=== PATIENT | male | born 1950 | race Caucasian/White ===

== ENCOUNTER 2019-08-18 06:08 | Day surgery (SDC) | payer MEDICARE, MEDICAID, SELFPAY ==
[2019-08-18 06:31] VITALS: BMI 28.0
--- NOTE | 2019-08-18 06:44 | ANES.PREANES ---
Pre-Anesthetic Assessment Pre-Anesthetic Assessment: Height/Weight: Height 1.75 m Weight 86.183 kg Proposed Procedure: Operation Date: 08/18/19 07:05 Proposed Procedures p EGD 28683 K21.9(Not Applicable) - Cody Garrett MD Social: Social History: Tobacco and No alcohol Packs per day: 1 Exam: Pre-Anes Outpt Exam: alert, oriented x 3, clear to auscultation bilaterally and regular rate & rhythm Airway: Submandibular: WNL Cervical ROM: WNL MP: 1 Dentition: False and Partials History/ROS: Other Pulmonary: Pulmonary: Asthma, COPD and SOB CV/HEM: CV/HEM: HTN : Comments: enlarged prostate GI: GI: GERD (controlled) Metabolic: Metabolic: DM (no meds taken) and Hyperlipidemia Musc/skel: Musc/skel: Lower Back Pain, OA/DJD and Weakness (hip and extremeties at times) Neuropsych: Neuropsych: Anxiety and Depression Anesthetic Plan: ASA status: III Anesthesia: MAC Risk of > 500 ml blood loss (7ml/kg in children): No PFSH Anesthesia PFSH: Social History (Updated 08/15/19 @ 13:16 by Thelma Arevalo RN) Smoking and tobacco status: never smoked Alcohol intake: never Substance/Drug Use: never Data Anesthesia Cardiac Studies: No Data to Display
[2019-08-18 06:48] VITALS: BP 145/76; PULSE 63; RESP 18; TEMP 36.3; O2SAT 93
[2019-08-18] MEDS: sodium chloride 0.9% 1,000 ML 30 ML (06:57)
[2019-08-18] MEDS: ondansetron 2 mg/ML SDV 2 mL 4 MG IVP (06:57)
--- NOTE | 2019-08-18 06:57 | PM.HPUD ---
H&P update H&P Update: DATE OF SURGERY/PROCEDURE: 08/18/19 DATE H&P PERFORMED: 06/17/19 PLANNED PROCEDURE: Operation Date: 08/18/19 07:05 Proposed Procedures p EGD 62312 K21.9(Not Applicable) - Cody Garrett MD Full H&P HPI: PLANNED PROCEDURE: EGD HPI: This is a 69-year-old gentleman who had previously been scheduled for an EGD but had to be canceled due to chest pain. He has been cleared by cardiology and now presents for EGD. No new symptoms. Perinent History: Social History: Social History Smoking and tobacco status: never smoked Alcohol intake: never Substance/Drug Use: never Pertinent Exam Findings: PHYSICAL EXAM: alert and oriented x 3 A&P Assessment and plan (1) GERD (gastroesophageal reflux disease): Plan for EGD under MAC today Procedure, risks, benefits and alternatives have been discussed with the patient who wishes to proceed with surgery. Status: Acute Code(s): K21.9 - Gastro-esophageal reflux disease without esophagitis
[2019-08-18 07:19] VITALS: BP 123/79; PULSE 63; RESP 16; TEMP 36.1; O2SAT 94
--- NOTE | 2019-08-18 07:23 | ANE.PACU ---
 Inpatient post-anesthesia follow up: Airway intact: Yes Vital signs: Temperature 97 F Pulse Rate [Right Radial] 63 Respiratory Rate 16 Blood Pressure [Le ft Arm] 123/79 Pulse Oximetry 94 Oxygen Delivery Me thod Nasal Cannula Oxygen Flow Rate 2 Fraction of Inspir ed Oxygen Hydration adequate: Yes Nausea and vomiting: No Pain level: 1 Mental status: Baseline
[2019-08-18 07:27] VITALS: BP 135/72; PULSE 61; RESP 16; O2SAT 95
[2019-08-18 07:37] VITALS: BP 144/61; PULSE 59; RESP 16; O2SAT 91
== END 2019-08-18 08:15 | disposition home or self-care (01) ==
PROVIDERS: Family Provider Internal Medicine; PCP Internal Medicine; Visit Provider Surgery
PROC: 0DJ08ZZ Inspection of Upper Intestinal Tract, Via Natural or Artificial Opening Endoscopic (ICD-10-PCS; CPT 43235; principal; 2019-08-18 07:00)
DX: K21.9 Gastro-esophageal reflux disease without esophagitis (principal); K29.80 Duodenitis without bleeding; I10 Essential (primary) hypertension; E11.9 Type 2 diabetes mellitus without complications; E78.5 Hyperlipidemia, unspecified; M19.90 Unspecified osteoarthritis, unspecified site
CPT/HCPCS: 43239; 88305; 96365; J2001; J2405; J2704; J7030

== ENCOUNTER → 2019-08-20 14:10 | Outpatient (BNVA) | payer MEDICARE, MEDICAID, SELFPAY | PROVIDERS: Family Provider Internal Medicine; PCP Internal Medicine; Visit Provider Anesthesiology | DX: M54.9 Dorsalgia, unspecified (principal); F17.210 Nicotine dependence, cigarettes, uncomplicated; Z79.891 Long term (current) use of opiate analgesic | CPT/HCPCS: 99214 ==

== ENCOUNTER → 2019-10-09 13:53 | Outpatient (BNVA) | payer MEDICARE, MEDICAID, SELFPAY | PROVIDERS: Family Provider Internal Medicine; PCP Internal Medicine; Visit Provider Anesthesiology | DX: M54.9 Dorsalgia, unspecified (principal); M19.011 Primary osteoarthritis, right shoulder; Z79.891 Long term (current) use of opiate analgesic | CPT/HCPCS: 99214 ==

== ENCOUNTER 2020-01-02 11:40 | Outpatient (CLI) | payer MEDICARE, MEDICAID, SELFPAY ==
[2020-01-02 12:27] LABS: Basophils % 0.1 %; Eosinophils # 0.2 10^3/uL (0.0-0.8); Eosinophils % 2.5 %; Hematocrit 47.8 % (42.0-52.0); Hemoglobin 15.7 g/dL (11.7-16.6); Lymphocytes # 2.1 10^3/uL (0.8-4.8); Lymphocytes % 22.2 %; Mean Corpuscular HGB Conc 32.8 g/dL (30.0-36.0); Mean Corpuscular Hemoglobin 27.5 pg (28.0-34.0); Mean Corpuscular Volume 83.9 fL (80-94); Mean Platelet Volume 8.9 fL (7.4-10.4); Monocytes # 0.5 10^3/uL (0.2-0.9); Monocytes % 5.1 %; Neutrophils # 6.6 10^3/uL (1.8-7.7); Neutrophils % 68.8 %; Nucleated Red Blood Cells % 0 %; Platelet Count 260 10^3/cmm (130-400); Red Cell Distribution Width 14.6 % (12.1-15.1); White Blood Count 9.6 10^3/uL (4.0-10.0)
[2020-01-02 12:45] LABS: Alanine Aminotransferase < 5 U/L (0-41); Albumin Level 4.5 g/dL (3.5-5.2); Alkaline Phosphatase 68 IU/L (40-130); Anion Gap 15.4 (5-19); Aspartate Amino Transferase 17 U/L (0-40); Blood Urea Nitrogen 14 mg/dL (8-23); Carbon Dioxide 25 mmol/L (22-29); Chloride 98 mmol/L (98-107); Globulin 2.8 g/dL (1.3-4.6); Glomerular Filtration Rate 83.4 mL/min (90-130); Glucose 131 mg/dL (65-115); Lactate Dehydrogenase 151 U/L (135-225); Osmolality Calculated 276 mOsm/kg (285-295); Potassium 4.4 mmol/L (3.5-5.1); Sodium 134 mmol/L (136-145); Total Bilirubin 0.2 mg/dL (0.15-1.2); Total Protein 7.3 g/dL (6.6-8.7)
== END 2020-01-02 11:41 | disposition home or self-care (01) ==
LOC: ONCMED 13:18
PROVIDERS: PCP Internal Medicine; Visit Provider Internal Medicine Hematology & Oncology
DX: M79.3 Panniculitis, unspecified (principal); R59.0 Localized enlarged lymph nodes
CPT/HCPCS: 80053; 83615; 85025

== ENCOUNTER 2020-01-05 15:05 | Outpatient (CLI) | payer MEDICARE, MEDICAID, SELFPAY ==
--- NOTE | 2020-01-05 16:53 | ONC FU_ITS ---
Dr. Wakefield follow up note Patient: Tasneem Barajas Unit #: [id number]: 1950 Dicatated By: Lin Wakefield M.D.Date of Visit:Jan 05, 2020 Onc Med Follow-up/Prog Note History of Present Illness: This is a 70 year-old man with mesenteric panniculitis. He had presented to emergency room with several months history of central abdominal pain, severe heartburn, cough and hemoptysis. A CT of the abdomen and pelvis on 06/09/2015 showed a large area of mesenteric stranding and edema just below pancreas with numerous lymph nodes in the mesentery and adjacent retroperitoneal area up to 1.2 cm. Lymphoproliferative disorder was considered radiographically. There was a thickening in the cecum. He had recent colonoscopy on 04/27/2015 without evidence of malignancy. The patient was first seen by Dr. Sheridan on 07/07/2015. He reported similar symptoms since at least December 2014. LDH and CA-19-9 were unrevealing. ESR 36, CRP 2.8. CT of the chest, abdomen, and pelvis on 07/21/2015 showed findings of GERD, and unchanged central mesenteric fat stranding with a retroperitoneal and mesenteric lymphadenopathy. Differential remained panniculitis versus low-grade indolent non-Hodgkin's lymphoma. Of note, he had prostatic focus on imaging, PSA 2. An upper endoscopy on 07/27/2015 revealed hiatal hernia with normal mucosa. PET/CT on 08/09/2015 showed nonspecific FDG negative mesenteric and retroperitoneal lymphadenopathy up to 1.9 cm, with misting of mesentery, that could represent reactive lymphadenopathy or low-grade lymphoproliferative disorder. There was no splenomegaly. There was normal uptake in the bone marrow. CT of the chest, abdomen, and pelvis on 07/21/2015 showed unchanged findings of mesenteric fat stranding and adenopathy. There was less conspicuous full-thickness of the cecum. Repeat CT of the abdomen and pelvis on 11/18/2015 showed persistent mesenteric panniculitis with increased and enlarging mesenteric lymph nodes but stable retroperitoneal lymph nodes. The patient was evaluated by Dr. Spangler, gastroenterology. Medical management of hiatal hernia was recommended. GERD was believed to cause pharyngeal irritation/ laryngeal irritation. Panniculitis treatment with 1 month's course of doxycycline 100 mg twice a day and Bactrim DS twice a day was considered. He had a followup visit with Dr. Sheridan on 11/22/2015. At that time his daughter indicated that the most concerning symptoms for his family were related to his progressive functional decline, memory changes, and constant tremors. He was known to have Parkinson's disease with significant tremors and difficulties ambulating. Neurology evaluation for Parkinson's disease had previously been requested but not completed. Family agreed at that point to see the neurologist in [place]. His other medical illnesses include hypertension, hyperlipidemia, COPD, GERD, degenerative arthritis, fibromyalgia, and depression. He also has a history of seizure disorder. He had smoked in the past, but had quit for 22 years. He then started smoking again in July 2015, and he is back up to smoking 1 pack of cigarettes daily. CT scan of the abdomen and pelvis performed 08/21/2016 showed mesenteric panniculitis (sclerosing mesenteritis). The lymph nodes had increased slightly in size and number since 06/09/2015 and 02/09/2016. CT scan of abdomen and pelvis done on 03/06/[address] scans of abdomen pelvis from 08/21/2016 and 02/09/2016 it shows persistent findings of mesenteric panniculitis. Associated lymphadenopathy with at least one lymph node larger (1.5 cm) than on 08/21/162016 Follow-up CT scan of abdomen done on 10/25/2018 when compared with one from 12/18/2016 showed no significant change in central mesenteric fat induration and lymphadenopathy etiology still unclear, indolent/low-grade lymphoma or idiopathic, follow-up CT scan of abdomen recommended in [address] scan of abdomen pelvis ordered by PMD for abdominal pain done on 03/28/2019 showed no acute findings, no change in mesenteric adenopathy since 2017. Enlarged prostate with the findings suggestive of bladder outlet obstruction. Came for follow-up, complaining of abdominal fullness, but no abdominal pain, no night sweats, no peripheral lymphadenopathy, no weight loss, no recurrent fever. Also complaining of acid reflux, under control with current medication. Medications: Albuterol Sulfate 1 ((2.5 mg/3ml) 0.083%) Nebulization solution Inhalation daily PRN, ALPRAZolam 0.5 - 1 Tablet (of 1 mg) Oral four times a day, Antivert 1 Tablet (of 25 mg) Oral t.i.d. PRN, Carbidopa-Levodopa ER 2 Tablet (of 25-100 mg) Tablet, controlled release Oral four times a day, CeleXA 1 (20 mg) Tablet Oral daily, Cyanocobalamin 1 dose(s) (of 1000 mcg/mL) Injection q 4 weeks, Cymbalta 1 Capsule (of 60 mg) Capsule Delayed Release Particles Oral b.i.d., Enalapril Maleate (10 mg) Oral daily, Flomax 1 Capsule (of 0.4 mg) Oral b.i.d., Furosemide 0.5 - 1 Tablet (of 20 mg) Oral daily PRN, Hydrocodone-Acetaminophen 2 Tablet (of 10-325 mg) Oral four times a day PRN, Lovastatin 1 Tablet (of 20 mg) Oral daily, NexIUM 1 Capsule (of 40 mg) Capsule Delayed Release Oral b.i.d., ProAir HFA Aerosol, solution Inhalation, Robitussin Cough/Cold CF Liquid Oral PRN, Tradjenta 1 Tablet (of 5 mg) Oral daily, Vasotec 1 Tablet (of 10 mg) Oral daily Allergies: Aleve, Ibuprofen, Januvia, milk, and TraZODone HCl. Review of Systems: Constitutional - Appetite is poor and weight is stable. Pat[place] states he feels feverish but does not run a temoperature. No chills, hot flashes, or night sweats. Energy level is fair, ENMT - Some sinus congestion/drainage. Some mouth sores. No sore throat or difficulty swallowing, Hematologic/Lymphatic - No abnormal bruising or bleeding, Respiratory - Patient has shortness of breath with exertion. Nonproductive cough. No pleuritic pain or hemoptysis, Cardiovascular - No angina pain. No palpitations, Gastrointestinal - Patient has nausea, without vomiting. Some heartburn or acid reflux. No diarrhea or constipation. No blood in the stool or black stools, Genitourinary (M) - No dysuria or hematuria. No urinary frequency. No urgency or incontinence, Musculoskeletal - Chronic joint or bone pain, Neurologic - No headache or dizziness. No numbness/paresthesias or other focal neurologic symptoms, Psychiatric - No anxiety or depression. No insomnia. Vital Signs: Vitals are not available for this patient. Performance Status: 0 - Fully active, able to carry on all predisease activities without restrictions. (ECOG) Physical Examination: ENMT - no mouth sores, no thrush, Respiratory - Lungs are clear, Cardiovascular - Regular rate and rhythm of heart, Abdomen - soft, bowel sounds present, no tenderness, Extremities - no visible edema, no peripheral lymphadenopathy. Lab/Imaging: Test performed on January 02, 2020 11:40 LDH (Total) 151 U/L Sodium 134 mmol/L Potassium 4.4 mmol/L Chloride 98 mmol/L CO2 25 mmol/L Anion Gap 15.4 BUN 14 mg/dL Creatinine 0.9 mg/dL Cr Clearance (Est) 92.45 mL/min eGFR 83.4 mL/min Glucose 131 mg/dL Calcium 10.0 mg/dL Protein, Total 7.3 g/dL Albumin 4.5 g/dL Globulin 2.8 g/dL Bilirubin, Total 0.2 mg/dL ALT (SGPT) < 5 U/L AST (SGOT) 17 U/L Alkaline Phosphatase 68 IU/L WBC 9.6 10 3/uL RBC 5.70 10 6/uL HGB 15.7 g/dL HCT 47.8 % MCV 83.9 fL MCH 27.5 pg MCHC 32.8 g/dL RDW 14.6 % Platelet Count 260 10 3/cmm MPV 8.9 fL Neutrophils 6.6 10 3/uL Lymphocytes 2.1 10 3/uL Monocytes 0.5 10 3/uL Eosinophils 0.2 10 3/uL Basophils 0.0 10 3/uL Neutrophil % 68.8 % Lymphocyte % 22.2 % Monocyte % 5.1 % Eosinophil % 2.5 % Basophils % 0.1 % Impression: 1. Patient with CT evidence of mesenteric panniculitis with associated retroperitoneal lymphadenopathy. Thus far there has been no clinical evidence of malignancy, but low-grade non-Hodgkin's lymphoma is in the differential. 2. He declined laparoscopy for tissue diagnosis. CT scan of abdomen pelvis done on 03/06/2017 showed persistent findings of mesenteric panniculitis. Associated lymphadenopathy with at least one lymph node larger than on 08/21/2016 CT scan of the abdominal pelvis done on 06/08/2017 shows findings of mesenteric panniculitis stable from 03/06/2017 , remote L5 compression fracture CT scan of abdomen chest abdomen pelvis done on 12/18/2017 showed when compared with one from 06/08/2017 mesenteric misting with changes of panniculitis and lymphadenopathy largest lymph node is 1.6 cm in diameter and a minimum progression since 06/08/[address] chest showed no significant adenopathy and stable CT scan chest since 02/09/2016 .Follow-up CT scan of abdomen pelvis done on 10/25/2018, when compared with CT scan of abdomen pelvis done on 12/18/2017 showed no significant change in central mesenteric fat induration and lymphadenopathy index lymph node is 13-14 mm. His other medical illnesses include: 3. Hypertension. 4. Hyperlipidemia. 5. COPD. 6. GERD. 7. Degenerative arthritis. 8. Fibromyalgia. 9. He has suspected Parkinson's disease. 10. He has history of seizure disorder. At this point he appears stable clinically with no obvious progression of lymphadenopathy and no other evidence of malignancy. Leukocytosis of questionable etiology could be due to smoking or stress or subclinical infection but underlying myeloproliferative disorder cannot be ruled out. now resolved repeat CBC done on 01/03/18 in his primary care's office today showed white blood count 9.9 hemoglobin 16.2 hct 48.5 platelets 214,000 Plan: Discussed with patient regarding his labs white blood count 9.6 hemoglobin 15.7 crit 47.8 platelets 260,000 CMP within normal limits LDH 161 Clinically, patient is doing well with no B signs symptoms or peripheral lymphadenopathy but only concern is abdominal fullness, patient has history of central lymphadenopathy due to mesenteric panniculitis, at this point we'll consider repeating CT scan of chest abdomen pelvis and if there is a progression then , may consider biopsy. Return to clinic after CT scan of chest abdomen pelvis to be scheduled within a month Signed By: Lin Wakefield M.D. <<Signature on File>>
== END 2020-01-05 15:06 | disposition home or self-care (01) ==
LOC: ONCMED 15:09
PROVIDERS: PCP Internal Medicine; Visit Provider Internal Medicine Hematology & Oncology
DX: M79.3 Panniculitis, unspecified (principal); R59.0 Localized enlarged lymph nodes; I10 Essential (primary) hypertension; E78.5 Hyperlipidemia, unspecified; J44.9 Chronic obstructive pulmonary disease, unspecified; K21.9 Gastro-esophageal reflux disease without esophagitis; M19.90 Unspecified osteoarthritis, unspecified site; M79.7 Fibromyalgia; G20 Parkinson's disease; G40.909 Epilepsy, unspecified, not intractable, without status epilepticus; Z79.899 Other long term (current) drug therapy
CPT/HCPCS: 99214

== ENCOUNTER → 2020-02-20 12:56 | Outpatient (BNVA) | payer MEDICARE, MEDICAID, SELFPAY | PROVIDERS: Family Provider Internal Medicine; PCP Internal Medicine; Visit Provider Anesthesiology | DX: M54.42 Lumbago with sciatica, left side (principal); M54.41 Lumbago with sciatica, right side; M19.011 Primary osteoarthritis, right shoulder; M54.9 Dorsalgia, unspecified; Z79.891 Long term (current) use of opiate analgesic | CPT/HCPCS: 99214 ==

== ENCOUNTER 2020-03-10 12:06 | Outpatient (CLI) | payer MEDICARE, MEDICAID, SELFPAY ==
--- NOTE | 2020-03-10 12:09 | CT_ITS ---
WS: [id number] CT ABDOMEN AND PELVIS WITH CONTRAST HISTORY: LYMPHADENOPATHY TECHNIQUE: Imaging performed of the abdomen and pelvis with IV contrast. Single phase imaging of the abdomen. Coronal and sagittal reformats are submitted. All CT scans at [facility] use at least one of these dose optimization techniques: automated exposure control; mA and/or kV adjustment per patient size (includes targeted exams where dose is matched to clinical indication); or iterativ e reconstruction. IV CONTRAST: Omnipaque 300; 95 mL IV. Oral contrast: Yes. DLP: 1100.93 mGy.cm COMPARISON: 03/28/2019 Lower thorax: Subsegmental linear atelectasis at the RIGHT lung base. Benign granuloma RIGHT lower lo be. Heart is normal size. Small hiatal hernia. Liver/biliary system: Normal size with no intrahepatic dilatation. Gallbladder: Normal. No gallstones or wall thickening. No pericholecystic fluid. Pancreas: Normal. Spleen: Normal. Adrenal glands: Normal. Right kidney: Normal. Left kidney: 12 mm cyst lower pole. No obstruction. Aorta: Mild atherosclerosis with no aneurysm. Lymphadenopathy: There are numerous indeterminate lymph nodes in the central mesentery with surroundi ng mesenteric misting. These lymph nodes have been present on prior examinations with the largest yao suring 11 mm in short axis diameter. No increase in size. No retroperitoneal adenopathy. Free fluid: None. GI tract: Normal appendix. There is mild diffuse fecal retention. Numerous diverticula in the sigmoid colon. Abdominal wall: Unremarkable abdominal wall. No hernia. Pelvis: Well-distended urinary bladder. Prostate gland is enlarged and heterogeneous encroaching into the posterior bladder. Prostate measures 5.6 x 5.8 cm. Bones: Mild anterior wedging of L5. CT/CT abdomen pelvis w con* [id number] IMPRESSION: 1. Mesenteric panniculitis with central mesenteric indeterminate lymph nodes. These lymph nodes nodes have been stable over multiple years. The largest measu res 11 mm in short axis diameter. 2. No splenomegaly. 3. Prostate enlargement.
[2020-03-10 13:01] LABS: Blood Urea Nitrogen 15 mg/dL (8-23)
[2020-03-10] MEDS: iohexol 300 mg/mL 100 mL Btl IV (13:54)
== END 2020-03-10 12:07 | disposition home or self-care (01) ==
LOC: CT 12:06
PROVIDERS: PCP Internal Medicine; Visit Provider Internal Medicine Hematology & Oncology
DX: R59.1 Generalized enlarged lymph nodes (principal); N40.0 Benign prostatic hyperplasia without lower urinary tract symptoms; K65.4 Sclerosing mesenteritis
CPT/HCPCS: 36415; 74177; 82565; 84520

== ENCOUNTER 2020-03-15 14:00 | Outpatient (CLI) | payer MEDICARE, MEDICAID, SELFPAY ==
--- NOTE | 2020-03-15 15:06 | ONC FU_ITS ---
Dr. Wakefield follow up note Patient: Tasneem Barajas Unit #: [id number]: 1950 Dicatated By: Lin Wakefield M.D.Date of Visit:Mar 15, 2020 Onc Med Follow-up/Prog Note History of Present Illness: This is a 70 year-old man with mesenteric panniculitis. He had presented to emergency room with several months history of central abdominal pain, severe heartburn, cough and hemoptysis. A CT of the abdomen and pelvis on 06/09/2015 showed a large area of mesenteric stranding and edema just below pancreas with numerous lymph nodes in the mesentery and adjacent retroperitoneal area up to 1.2 cm. Lymphoproliferative disorder was considered radiographically. There was a thickening in the cecum. He had recent colonoscopy on 04/27/2015 without evidence of malignancy. The patient was first seen by Dr. Sheridan on 07/07/2015. He reported similar symptoms since at least December 2014. LDH and CA-19-9 were unrevealing. ESR 36, CRP 2.8. CT of the chest, abdomen, and pelvis on 07/21/2015 showed findings of GERD, and unchanged central mesenteric fat stranding with a retroperitoneal and mesenteric lymphadenopathy. Differential remained panniculitis versus low-grade indolent non-Hodgkin's lymphoma. Of note, he had prostatic focus on imaging, PSA 2. An upper endoscopy on 07/27/2015 revealed hiatal hernia with normal mucosa. PET/CT on 08/09/2015 showed nonspecific FDG negative mesenteric and retroperitoneal lymphadenopathy up to 1.9 cm, with misting of mesentery, that could represent reactive lymphadenopathy or low-grade lymphoproliferative disorder. There was no splenomegaly. There was normal uptake in the bone marrow. CT of the chest, abdomen, and pelvis on 07/21/2015 showed unchanged findings of mesenteric fat stranding and adenopathy. There was less conspicuous full-thickness of the cecum. Repeat CT of the abdomen and pelvis on 11/18/2015 showed persistent mesenteric panniculitis with increased and enlarging mesenteric lymph nodes but stable retroperitoneal lymph nodes. The patient was evaluated by Dr. Spangler, gastroenterology. Medical management of hiatal hernia was recommended. GERD was believed to cause pharyngeal irritation/ laryngeal irritation. Panniculitis treatment with 1 month's course of doxycycline 100 mg twice a day and Bactrim DS twice a day was considered. He had a followup visit with Dr. Sheridan on 11/22/2015. At that time his daughter indicated that the most concerning symptoms for his family were related to his progressive functional decline, memory changes, and constant tremors. He was known to have Parkinson's disease with significant tremors and difficulties ambulating. Neurology evaluation for Parkinson's disease had previously been requested but not completed. Family agreed at that point to see the neurologist in [place]. His other medical illnesses include hypertension, hyperlipidemia, COPD, GERD, degenerative arthritis, fibromyalgia, and depression. He also has a history of seizure disorder. He had smoked in the past, but had quit for 22 years. He then started smoking again in July 2015, and he is back up to smoking 1 pack of cigarettes daily. CT scan of the abdomen and pelvis performed 08/21/2016 showed mesenteric panniculitis (sclerosing mesenteritis). The lymph nodes had increased slightly in size and number since 06/09/2015 and 02/09/2016. CT scan of abdomen and pelvis done on 03/06/[address] scans of abdomen pelvis from 08/21/2016 and 02/09/2016 it shows persistent findings of mesenteric panniculitis. Associated lymphadenopathy with at least one lymph node larger (1.5 cm) than on 08/21/162016 Follow-up CT scan of abdomen done on 10/25/2018 when compared with one from 12/18/2016 showed no significant change in central mesenteric fat induration and lymphadenopathy etiology still unclear, indolent/low-grade lymphoma or idiopathic, follow-up CT scan of abdomen recommended in [address] scan of abdomen pelvis ordered by PMD for abdominal pain done on 03/28/2019 showed no acute findings, no change in mesenteric adenopathy since 2017. Enlarged prostate with the findings suggestive of bladder outlet obstruction. Follow-up CT scan of abdomen pelvis done on March 10, 2020 showed mesenteric panniculitis with central mesenteric indeterminate lymph nodes. These lymph nodes have been stable over multiple years. Largest measured 11 mm in short axis diameter. No splenomegaly. Came for follow-up, patient denies any specific complaints, no night sweats, no weight loss, no peripheral lymphadenopathy, no recurrent fever. No abdominal fullness, no nausea or vomiting, no fever or chills. Medications: Albuterol Sulfate 1 ((2.5 mg/3ml) 0.083%) Nebulization solution Inhalation daily PRN, ALPRAZolam 0.5 - 1 Tablet (of 1 mg) Oral four times a day, Antivert 1 Tablet (of 25 mg) Oral t.i.d. PRN, Carbidopa-Levodopa ER 2 Tablet (of 25-100 mg) Tablet, controlled release Oral four times a day, CeleXA 1 (20 mg) Tablet Oral daily, Cymbalta 1 Capsule (of 60 mg) Capsule Delayed Release Particles Oral b.i.d., Enalapril Maleate (10 mg) Oral daily, Flomax 1 Capsule (of 0.4 mg) Oral b.i.d., Furosemide 0.5 - 1 Tablet (of 20 mg) Oral daily PRN, Hydrocodone-Acetaminophen 2 Tablet (of 10-325 mg) Oral four times a day PRN, Lovastatin 1 Tablet (of 20 mg) Oral daily, ProAir HFA Aerosol, solution Inhalation, Robitussin Cough/Cold CF Liquid Oral PRN, Tradjenta 1 Tablet (of 5 mg) Oral daily, Vasotec 1 Tablet (of 10 mg) Oral daily Allergies: Aleve, Ibuprofen, Januvia, milk, and TraZODone HCl. Review of Systems: Review of Systems is not available for this patient. Vital Signs: Performed on Mar 15, 2020 14:26 Height - 68.00 in Weight - 195.6 lbs (HIGH) BSA - 2.02 sq.m BMI - 29.74 Temperature - 97.5 F (LOW) Pulse - 77 /min Respiration - 18 /min BP - 162/78 mm(hg) (HIGH) O2 Sat - 96 % Pain - 0 Performance Status: 0 - Fully active, able to carry on all predisease activities without restrictions. (ECOG) Physical Examination: ENMT - No mouth sores, no thrush, no jaundice, Respiratory - Lungs are clear, Cardiovascular - Regular rate and rhythm of heart, Abdomen - Soft, bowel sounds present, no organomegaly, Extremities - No visible edema or rash, no peripheral lymphadenopathy. Lab/Imaging: Test performed on January 02, 2020 11:40 LDH (Total) 151 U/L Sodium 134 mmol/L Potassium 4.4 mmol/L Chloride 98 mmol/L CO2 25 mmol/L Anion Gap 15.4 BUN 14 mg/dL Creatinine 0.9 mg/dL Cr Clearance (Est) 92.45 mL/min eGFR 83.4 mL/min Glucose 131 mg/dL Calcium 10.0 mg/dL Protein, Total 7.3 g/dL Albumin 4.5 g/dL Globulin 2.8 g/dL Bilirubin, Total 0.2 mg/dL ALT (SGPT) < 5 U/L AST (SGOT) 17 U/L Alkaline Phosphatase 68 IU/L WBC 9.6 10 3/uL RBC 5.70 10 6/uL HGB 15.7 g/dL HCT 47.8 % MCV 83.9 fL MCH 27.5 pg MCHC 32.8 g/dL RDW 14.6 % Platelet Count 260 10 3/cmm MPV 8.9 fL Neutrophils 6.6 10 3/uL Lymphocytes 2.1 10 3/uL Monocytes 0.5 10 3/uL Eosinophils 0.2 10 3/uL Basophils 0.0 10 3/uL Neutrophil % 68.8 % Lymphocyte % 22.2 % Monocyte % 5.1 % Eosinophil % 2.5 % Basophils % 0.1 % Impression: 1. Patient with CT evidence of mesenteric panniculitis with associated retroperitoneal lymphadenopathy. Thus far there has been no clinical evidence of malignancy, but low-grade non-Hodgkin's lymphoma is in the differential. 2. He declined laparoscopy for tissue diagnosis. CT scan of abdomen pelvis done on 03/06/2017 showed persistent findings of mesenteric panniculitis. Associated lymphadenopathy with at least one lymph node larger than on 08/21/2016 CT scan of the abdominal pelvis done on 06/08/2017 shows findings of mesenteric panniculitis stable from 03/06/2017 , remote L5 compression fracture CT scan of abdomen chest abdomen pelvis done on 12/18/2017 showed when compared with one from 06/08/2017 mesenteric misting with changes of panniculitis and lymphadenopathy largest lymph node is 1.6 cm in diameter and a minimum progression since 06/08/[address] chest showed no significant adenopathy and stable CT scan chest since 02/09/2016 .Follow-up CT scan of abdomen pelvis done on 10/25/2018, when compared with CT scan of abdomen pelvis done on 12/18/2017 showed no significant change in central mesenteric fat induration and lymphadenopathy index lymph node is 13-14 mm. His other medical illnesses include: 3. Hypertension. 4. Hyperlipidemia. 5. COPD. 6. GERD. 7. Degenerative arthritis. 8. Fibromyalgia. 9. He has suspected Parkinson's disease. 10. He has history of seizure disorder. At this point he appears stable clinically with no obvious progression of lymphadenopathy and no other evidence of malignancy. Leukocytosis of questionable etiology could be due to smoking or stress or subclinical infection but underlying myeloproliferative disorder cannot be ruled out. now resolved repeat CBC done on 01/03/18 in his primary care's office today showed white blood count 9.9 hemoglobin 16.2 hct 48.5 platelets 214,000 Plan: Discussed with patient regarding his follow-up CT scan of abdomen pelvis which showed persistent But stable mild mesenteric lymphadenopathy consistent with radiological diagnosis of mesenteric panniculitis since diagnosed in 2014, At this point, no further work-up from medical oncology point of view rather see him on as-needed basis, patient will follow-up with his PMD on regular basis. Signed By: Lin Wakefield M.D. <<Signature on File>>
== END 2020-03-15 14:01 | disposition home or self-care (01) ==
LOC: ONCMED 14:04
PROVIDERS: PCP Internal Medicine; Visit Provider Internal Medicine Hematology & Oncology
DX: K65.4 Sclerosing mesenteritis (principal); R59.0 Localized enlarged lymph nodes; I10 Essential (primary) hypertension; E78.5 Hyperlipidemia, unspecified; J44.9 Chronic obstructive pulmonary disease, unspecified; K21.9 Gastro-esophageal reflux disease without esophagitis; M19.90 Unspecified osteoarthritis, unspecified site; M79.7 Fibromyalgia; Z86.69 Personal history of other diseases of the nervous system and sense organs
CPT/HCPCS: G0463

== ENCOUNTER → 2020-04-28 13:03 | Outpatient (BNVA) | payer MEDICARE, MEDICAID, SELFPAY | PROVIDERS: PCP Internal Medicine; Visit Provider Anesthesiology | DX: M54.41 Lumbago with sciatica, right side (principal); M54.42 Lumbago with sciatica, left side; M54.9 Dorsalgia, unspecified; M19.011 Primary osteoarthritis, right shoulder; Z79.891 Long term (current) use of opiate analgesic | CPT/HCPCS: 99213; 99214 ==

== ENCOUNTER → 2020-06-22 13:48 | Outpatient (BNVA) | payer MEDICARE, MEDICAID, SELFPAY | PROVIDERS: PCP Internal Medicine; Visit Provider Anesthesiology | DX: M54.42 Lumbago with sciatica, left side (principal); M54.41 Lumbago with sciatica, right side; M19.011 Primary osteoarthritis, right shoulder; M54.9 Dorsalgia, unspecified; F17.210 Nicotine dependence, cigarettes, uncomplicated; Z79.891 Long term (current) use of opiate analgesic | CPT/HCPCS: 99213; 99214 ==

== ENCOUNTER → 2020-08-24 13:45 | Outpatient (BNVA) | payer MEDICARE, SELFPAY | PROVIDERS: PCP Internal Medicine; Visit Provider Anesthesiology | DX: G89.29 Other chronic pain (principal); M19.011 Primary osteoarthritis, right shoulder; M25.552 Pain in left hip; F17.210 Nicotine dependence, cigarettes, uncomplicated; Z79.891 Long term (current) use of opiate analgesic | CPT/HCPCS: 99214 ==

== ENCOUNTER → 2020-10-20 12:38 | Outpatient (BNVA) | payer MEDICARE, SELFPAY | PROVIDERS: PCP Internal Medicine; Visit Provider Anesthesiology | DX: G89.29 Other chronic pain (principal); M19.011 Primary osteoarthritis, right shoulder; M25.551 Pain in right hip; M25.552 Pain in left hip; Z79.891 Long term (current) use of opiate analgesic | CPT/HCPCS: 99214 ==

== ENCOUNTER → 2020-12-21 13:30 | Outpatient (BNVA) | payer MEDICARE, MEDICAID, SELFPAY | PROVIDERS: PCP Internal Medicine; Visit Provider Anesthesiology | DX: G89.29 Other chronic pain (principal); M19.011 Primary osteoarthritis, right shoulder; M25.552 Pain in left hip; Z79.891 Long term (current) use of opiate analgesic | CPT/HCPCS: 99214 ==

== ENCOUNTER → 2021-02-17 14:16 | Outpatient (BNVA) | payer MEDICARE, MEDICAID, SELFPAY | PROVIDERS: PCP Internal Medicine; Visit Provider Anesthesiology | DX: G89.29 Other chronic pain (principal); M19.011 Primary osteoarthritis, right shoulder; M25.512 Pain in left shoulder; M25.552 Pain in left hip; F17.210 Nicotine dependence, cigarettes, uncomplicated; Z79.891 Long term (current) use of opiate analgesic | CPT/HCPCS: 99213; 99214 ==

== ENCOUNTER → 2021-04-20 13:57 | Outpatient (BNVA) | payer MEDICARE, MEDICAID, SELFPAY | PROVIDERS: PCP Internal Medicine; Visit Provider Nurse Practitioner | DX: G89.29 Other chronic pain (principal); M19.011 Primary osteoarthritis, right shoulder; M25.512 Pain in left shoulder; M25.552 Pain in left hip; M25.551 Pain in right hip; F17.210 Nicotine dependence, cigarettes, uncomplicated; Z79.891 Long term (current) use of opiate analgesic | CPT/HCPCS: 99212 ==

== ENCOUNTER → 2021-06-23 13:26 | Outpatient (BNVA) | payer MEDICARE, MEDICAID, SELFPAY | PROVIDERS: PCP Internal Medicine; Visit Provider Anesthesiology | DX: G89.29 Other chronic pain (principal); M54.9 Dorsalgia, unspecified; M25.552 Pain in left hip; M19.011 Primary osteoarthritis, right shoulder; Z79.891 Long term (current) use of opiate analgesic | CPT/HCPCS: 99214 ==

== ENCOUNTER → 2021-08-18 13:41 | Outpatient (BNVA) | payer MEDICARE, MEDICAID, SELFPAY | PROVIDERS: PCP Internal Medicine; Visit Provider Anesthesiology | DX: G89.29 Other chronic pain (principal); M54.50 Low back pain, unspecified; M25.552 Pain in left hip; M19.011 Primary osteoarthritis, right shoulder; M25.512 Pain in left shoulder; Z79.891 Long term (current) use of opiate analgesic | CPT/HCPCS: 99214 ==

== ENCOUNTER 2021-08-18 14:41 | Outpatient (CLI) | payer MEDICARE, MEDICAID, SELFPAY ==
--- NOTE | 2021-08-18 14:48 | XR_ITS ---
WS: [id number] LEFT HIP HISTORY: M25.552 - Pain in left hip COMPARISON: Pelvis 06/13/2016 LEFT hip: No acute fracture or dislocation. Very mild narrowing and sclerosis involving the hip joint . Sclerosis along the superior acetabulum with a small osteophyte developing from the superior latera l acetabulum. Mild progression of degenerative joint disease. No lytic or destructive bone lesions. XR/XR hip LT 2-3V wo/w pel* [id number] IMPRESSION: 1. No hip fracture. 2. Mild degenerative joint disease at the LEFT hip. Mild progression since 201 6.
--- NOTE | 2021-08-18 14:48 | XR_ITS ---
WS: [id number] LUMBAR SPINE: 3 VIEWS TECHNIQUE: AP, lateral and L5-S1 spot. HISTORY: M54.9 - Dorsalgia, unspecified COMPARISON: None available. Mild RIGHT rotoscoliosis of the lumbar spine. Asymmetric disc space narrowing throughout the lumbar s pine. Disc spaces are moderately narrowed. Facet joint arthritis most significant at L5-S1. No fractu re. SI joints are symmetric bilaterally. No soft tissue abnormalities. XR/XR lumbar spine 2-3V* [id number] IMPRESSION: Mild RIGHT rotoscoliosis lumbar spine. No fracture.
== END 2021-08-18 14:42 | disposition home or self-care (01) ==
PROVIDERS: PCP Internal Medicine; Visit Provider Anesthesiology
DX: M54.50 Low back pain, unspecified (principal); G89.29 Other chronic pain; M41.86 Other forms of scoliosis, lumbar region; M16.12 Unilateral primary osteoarthritis, left hip; M25.552 Pain in left hip; M19.011 Primary osteoarthritis, right shoulder; M25.512 Pain in left shoulder; Z79.891 Long term (current) use of opiate analgesic
CPT/HCPCS: 72100; 73502; 99214

== ENCOUNTER → 2021-09-14 13:07 | Outpatient (BNVA) | payer MEDICARE, MEDICAID, SELFPAY | PROVIDERS: PCP Internal Medicine; Visit Provider Anesthesiology | DX: G89.29 Other chronic pain (principal); M54.50 Low back pain, unspecified; M25.552 Pain in left hip; M19.011 Primary osteoarthritis, right shoulder; F17.210 Nicotine dependence, cigarettes, uncomplicated; Z79.891 Long term (current) use of opiate analgesic | CPT/HCPCS: 99214 ==

== ENCOUNTER → 2021-11-29 13:49 | Outpatient (BNVA) | payer MEDICARE, MEDICAID, SELFPAY | PROVIDERS: PCP Internal Medicine; Visit Provider Internal Medicine Cardiovascular Disease | DX: Z53.9 Procedure and treatment not carried out, unspecified reason (principal) ==

== ENCOUNTER → 2021-12-05 15:12 | Outpatient (BNVA) | payer MEDICARE, MEDICAID, SELFPAY | PROVIDERS: PCP Internal Medicine; Visit Provider Internal Medicine Cardiovascular Disease | DX: R06.02 Shortness of breath (principal); R07.9 Chest pain, unspecified; I10 Essential (primary) hypertension; E78.5 Hyperlipidemia, unspecified; F17.210 Nicotine dependence, cigarettes, uncomplicated | CPT/HCPCS: 99213; 99214 ==

== ENCOUNTER 2022-07-18 14:40 | Outpatient (CLI) | payer MEDICARE, MEDICAID, SELFPAY ==
--- NOTE | 2022-07-18 14:45 | MR_ITS ---
WS: [id number] MRI BRAIN WITHOUT CONTRAST HISTORY: FACIAL DROOP COMPARISON: 12/15/2015 TECHNIQUE: Diffusion imaging, multiplanar T1, T2 and FLAIR imaging obtained. No evidence for acute infarct or hemorrhage. Serrato-white matter differentiation is normal. Mild small vessel ischemic disease. Small lacunar infarct RIGHT caudate. No prior infarct. No signal abnormalities at Meckel's cave or along the brain stem. Ventricles and extra-axial spaces are normal. No inferior displacement of cerebellar tonsils. The sella turcica and pituitary gland are unremarkabl e. Dural venous sinuses and buckland of Servin demonstrate no abnormality on this unenhanced studies. Paranasal sinuses: Clear. Mastoid air cells: Normal. Calvarium and scalp: Intact. MR/MR head wo con* [id number] IMPRESSION: 1. No acute intracranial hemorrhage or infarct. 2. Atrophy and small vessel ischemic disease. Remote RIGHT caudate lacunar inf arct.
== END 2022-07-18 14:41 | disposition home or self-care (01) ==
LOC: RAD 14:41
PROVIDERS: PCP Internal Medicine; Visit Provider Internal Medicine
DX: R29.810 Facial weakness (principal); I67.82 Cerebral ischemia; G31.9 Degenerative disease of nervous system, unspecified
CPT/HCPCS: 70551

== ENCOUNTER → 2023-02-20 15:00 | Outpatient (BNVA) | payer MEDICARE, MEDICAID, SELFPAY | PROVIDERS: PCP Internal Medicine; Visit Provider Internal Medicine Cardiovascular Disease | DX: R06.02 Shortness of breath (principal); R07.9 Chest pain, unspecified; I10 Essential (primary) hypertension; E78.5 Hyperlipidemia, unspecified; K21.9 Gastro-esophageal reflux disease without esophagitis; G20 Parkinson's disease; F17.210 Nicotine dependence, cigarettes, uncomplicated; R94.31 Abnormal electrocardiogram [ECG] [EKG] | CPT/HCPCS: 93005; 99214 ==

== ENCOUNTER 2023-07-25 15:16 | Emergency (ER) | payer MEDICARE, MEDICAID, SELFPAY ==
[2023-07-25 15:17] VITALS: BMI 27.3
[2023-07-25 15:20] VITALS: BP 126/64; PULSE 73; RESP 16; TEMP 36.6; O2SAT 93
--- NOTE | 2023-07-25 15:22 | XRR_ITS ---
PROCEDURE INFORMATION: Exam: XR Chest Exam date and time: 07/25/2023 3:25 PM Age: 73 years old Clinical indication: Other: Weakness TECHNIQUE: Imaging protocol: Radiologic exam of the chest. Views: 1 view. COMPARISON: CR XR chest 2V* [id number] 10/24/2022 2:44 PM FINDINGS: Lungs: Focal linear opacity in the right lateral base has the appearance of atelectasis or fibrosis. No consolidation. Pleural spaces: Unremarkable. No pleural effusion. No pneumothorax. Heart/Mediastinum: Unremarkable. No cardiomegaly. Bones/joints: No acute findings. There is a levocurvature of the spine. XR/XR chest 1V portable [id number] IMPRESSION: Focal linear opacity in the right lateral base has the appearance of atelectasis or fibrosis. No consolidation.
--- NOTE | 2023-07-25 15:22 | ECG_ITS ---
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 Measurements Intervals [place] Rate: 72 P: 12 CO: 140 QRS: 18 QRSD: 93 T: 25 QT: 377 QTc: 414 Interpretive Statements SINUS RHYTHM NONSPECIFIC ST & T-WAVE ABNORMALITY Compared to ECG 02/20/2023 15:12:43 Short CO interval no longer present T-wave abnormality still present Electronically Signed On 07-25-2023 22:21:25 BOOK SEWER by Shelby Diaz M.D. [id number]
--- NOTE | 2023-07-25 15:32 | CTR_ITS ---
PROCEDURE INFORMATION: Exam: CT Head Without Contrast Exam date and time: 07/25/2023 4:15 PM Age: 73 years old Clinical indication: Other: General weakness TECHNIQUE: Imaging protocol: Computed tomography of the head without contrast. Radiation optimization: All CT scans at this facility use at least one of these dose optimization techniques: automated exposure control; mA and/or kV adjustment per patient size (includes targeted exams where dose is matched to clinical indication); or iterative reconstruction. REPORTING DATA: Count of CT and Cardiac NM exams in prior 12 months: This patient has received 0 known CTs and 0 known cardiac nuclear medicine studies in the 12 months prior to the current study. COMPARISON: MR head wo con* [id number] 07/18/2022 3:17 PM RADIATION DOSE METRICS: Total DLP (mGy-cm): 1115 FINDINGS: Brain: Mild parenchymal volume loss. No midline shift. No mass, acute infarct, hemorrhage, or extra-axial fluid collection. Nonacute lacunar infarcts in both basal ganglia. Cerebral ventricles: No ventriculomegaly. Paranasal sinuses: Visualized sinuses are unremarkable. No fluid levels. Mastoid air cells: Visualized mastoid air cells are well aerated. Bones/joints: Apparent remote right nasal bone fracture. Soft tissues: Unremarkable. CT/CT head wo con* [id number] IMPRESSION: No acute intracranial abnormality.
--- NOTE | 2023-07-25 15:39 | ED_ITS ---
HPI - Weakness 2 General: Chief complaint: Weakness Stated complaint: Gen Weakness Time Seen by Provider: 07/25/23 15:19 Source: patient Mode of arrival: ambulatory Limitations: no limitations History of Present Illness: 73-year-old male who is here from [facility] with generalized weakness he has a history of Parkinson's states he has been just feeling tired and weak over the last 2 weeks. 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 Associated symptoms: Denies chest pain, chills, dysuria, fever(s), headache(s), nausea or vomiting Review of Systems 2 Const: Reports: fatigue and malaise; Denies: fever(s), chills, body aches or change in appetite ENMT: Denies: throat pain or dental pain Card: Denies: chest pain Resp: Denies: dyspnea GI: Denies: abdominal pain, nausea, vomiting or diarrhea : Denies: dysuria Musc: Denies: neck pain or back pain Skin/Breast: Denies: rash Neuro: Denies: headache(s) PFSH ED 2 PFSH: Medical History Hyperlipidemia Chronic left hip pain Encounter for long-term opiate analgesic use Anxiety Hypertension Parkinson disease Depression GERD (gastroesophageal reflux disease) Surgical History History of open reduction and internal fixation (ORIF) procedure Left elbow Hx of submucous nasal surgery Hx of brain surgery X2 History of esophagogastroduodenoscopy (EGD) 08/18/2019: Duodenitis Family History Brother Cancer CAD (coronary artery disease) Father Diabetes Parkinson disease Mother CAD (coronary artery disease) Social History Smoking and tobacco/nicotine status: current every day tobacco/nicotine user cigarettes Packs smoked per day: 1 Alcohol intake: never Substance/Drug Use: never Lives independently: Yes Household members: none Current occupational status: disabled Physical Exam 2 Const: COMMON NORMALS: no acute distress, patient oriented x3 and healthy appearing HENMT: COMMON NORMALS: normocephalic and atraumatic HEAD & SCALP: n ormocephalic and atraumatic Eye: COMMON NORMALS: Equal, round and reactive pupils present and EOMs intact bilaterally PUPIL: Yes Equal, round and reactive pupils present Neck/C-Spine: COMMON NORMALS: full ROM and supple Chest: COMMONS NORMALS: normal inspection of the chest and normal palpation of entire chest wall Resp: COMMON NORMALS: normal respiratory effort, No retractions, No use of accessory muscles and clear to auscultation bilaterally AUSCULTATION: clear to auscultation bilaterally Cardio: COMMON NORMALS: regular rate, regular rhythm and No murmurs present (Cardio) RATE: regular rate RHYTHM: regular rhythm GI: COMMON NORMALS: Normal to inspection, nondistended, normoactive bowel sounds present, Soft to palpation, non-tender and no masses PALPATION: Yes Soft to palpation Extremity: COMMON NORMALS: normal to inspection and full ROM Neuro: COMMON NORMALS: patient oriented x3, moves all extremities and no focal motor deficits Psych: COMMON NORMALS: mental status grossly normal, Normal thought process present and cooperative THOUGHT PROCESS: Normal thought process present Skin: COMMON NORMALS: no rashes or lesions noted and no wounds GENERAL SKIN EXAM: no rashes or lesions noted Course 2 Vital Signs: Vital signs: Vital Signs Temperature 97.9 F 07/25/23 15:20 Pulse Rate 88 07/25/23 17:35 Respiratory Rate 16 07/25/23 17:35 Blood Pressure 126/64 07/25/23 15:20 Pulse Oximetry 96 07/25/23 17:35 Oxygen Delivery Me thod Room Air 07/25/23 15:20 MDM - Weakness Medical Decision Making Patient presents here with generalized weakness he does have Parkinson's he is well-appearing here no focal deficits head CT blood works all normal no signs of stroke he is able ambulate here at his baseline he is stable for discharge follow-up PCP return if worsening. Medical Records I reviewed the patient's medical records. Lab Data I reviewed the patient's lab results. 07/25/23 15:44 07/25/23 15:44 Radiology Impressions Chest X-Ray 07/25/23 15:22 IMPRESSION: Focal linear opacity in the right lateral base has the appearance of atelectasis or fibrosis. No consolidation. Head CT 07/25/23 15:32 IMPRESSION: No acute intracranial abnormality. Laboratory Results WBC 10.26 10^3/uL (3.29-11.43) 07/25/23 15:44 RBC 5.92 10^6/uL (3.85-5.65) H 07/25/23 15:44 Hgb 16.00 g/dL (11.27-16.99) 07/25/23 15:44 Hct 47.9 % (37-53) 07/25/23 15:44 MCV 80.9 fl (82-101) L 07/25/23 15:44 MCH 27.0 pg (27-33) 07/25/23 15:44 MCHC 33.4 g/dL (30-55) 07/25/23 15:44 RDW 13.9 % (12.1-15.1) 07/25/23 15:44 Plt Count 234 10^3/cmm (157-399) 07/25/23 15:44 MPV 8.4 fL (7.4-10.4) 07/25/23 15:44 Neut % (Auto) 62.5 % 07/25/23 15:44 Lymph % (Auto) 28.3 % 07/25/23 15:44 [place] % (Auto) 6.7 % 07/25/23 15:44 Eos % (Auto) 2.0 % 07/25/23 15:44 Baso % (Auto) 0.1 % 07/25/23 15:44 Neut # (Auto) 6.41 10^3/uL (1.8-7.7) 07/25/23 15:44 Lymph # (Auto) 2.9 10^3/uL (0.8-4.8) 07/25/23 15:44 [place] # (Auto) 0.7 10^3/uL (0.2-0.9) 07/25/23 15:44 Eos # (Auto) 0.2 10^3/uL (0.0-0.8) 07/25/23 15:44 Baso # (Auto) 0.0 10^3/uL (0.0-0.1) 07/25/23 15:44 Nucleated RBC % (auto) 0 % 07/25/23 15:44 Nucleated RBCs # 0.0 /100WBC 07/25/23 15:44 Sodium 134 mmol/L (136-145) L 07/25/23 15:44 Potassium 4.3 mmol/L (3.5-5.1) 07/25/23 15:44 Chloride 98 mmol/L (98-107) 07/25/23 15:44 Carbon Dioxide 27 mmol/L (22-29) 07/25/23 15:44 Anion Gap 13.3 (5-19) 07/25/23 15:44 BUN 20 mg/dL (8-23) 07/25/23 15:44 Creatinine 0.7 mg/dL (0.7-1.2) 07/25/23 15:44 GFR Calculation Not Reportable 07/25/23 15:44 Glucose 141 mg/dL (65-115) H 07/25/23 15:44 Calculated Osmolality 283 mOsm/kg (285-295) L 07/25/23 15:44 Calcium 10.5 mg/dL (8.5-10.5) 07/25/23 15:44 Magnesium 2.1 mg/dL (1.7-2.3) 07/25/23 15:44 Total Bilirubin 0.3 mg/dL (0.15-1.2) 07/25/23 15:44 AST 17 U/L (0-40) 07/25/23 15:44 ALT 11 U/L (0-41) 07/25/23 15:44 Alkaline Phosphatase 62 U/L (40-130) 07/25/23 15:44 Total Protein 6.9 g/dL (6.6-8.7) 07/25/23 15:44 Albumin 4.5 g/dL (3.5-5.2) 07/25/23 15:44 Globulin 2.4 g/dL (1.3-4.6) 07/25/23 15:44 TSH 1.60 uIU/mL (0.27-4.20) 07/25/23 15:44 Urine Color Yellow (Yellow) 07/25/23 16:52 Urine Appearance Clear (CLEAR) 07/25/23 16:52 Urine pH 5 (5-7) 07/25/23 16:52 Ur Specific [place] 1.015 (1.005-1.030) 07/25/23 16:52 Urine Protein Neg (Negative) 07/25/23 16:52 Urine Glucose (UA) 4+ (Normal) H 07/25/23 16:52 Urine Ketones 1+ (Negative) H 07/25/23 16:52 Urine Blood Neg (Negative) 07/25/23 16:52 Urine Nitrate Negative (Negative) 07/25/23 16:52 Urine Bilirubin Neg (Negative) 07/25/23 16:52 Urine Urobilinogen Norm mg/dL (Negative) 07/25/23 16:52 Ur Leukocyte Esterase Negative (Negative) 07/25/23 16:52 Influenza Type A Ag negative (Negative) 07/25/23 16:10 Influenza Type B Ag negative (Negative) 07/25/23 16:10 SARS-CoV-2 Ag (Rapid) Negative (Negative) 07/25/23 16:10 All radiology interpretation(s) finalized by discharge EKG Data EKG 1: I personally reviewed and interpreted this EKG as follows: EKG interpretation date: 07/25/23 EKG interpretation time: 16:03 Interpretation: nsr hr [address] or t wave abnormalities qrs 93 qtc 401 Discharge Plan Discharge Patient Disposition: Home Clinical Impression: Weakness, Nausea Condition: Stable Prescriptions: New ondansetron 4 mg tablet,disintegrating 4 mg PO Q6H PRN (Reason: nausea and vomiting) Qty: 14 0RF No Action citalopram 20 mg tablet 20 mg PO DAILY finasteride 5 mg tablet 5 mg PO DAILY esomeprazole magnesium [Nexium] 40 mg capsule,delayed release(DR/EC) 40 mg PO DAILY sucralfate [Carafate] 1 gram tablet 1 g PO QID PRN (Reason: Acid Reflux) hydrocodone-acetaminophen 10-325 mg tablet 2 tab PO QID PRN (Reason: pain) 30 Days Qty: 240 0RF alprazolam 1 mg tablet 1 mg PO QID PRN (Reason: Anxiety) lovastatin 20 mg tablet 20 mg PO DAILY Qty: 90 3RF isosorbide mononitrate 30 mg tablet extended release 24 hr 15 mg PO BID Qty: 90 3RF enalapril maleate 10 mg tablet 10 mg PO DAILY Qty: 90 3RF tamsulosin 0.4 mg capsule 0.4 mg PO BID carbidopa-levodopa 25-100 mg tablet 1 tab PO DAILY albuterol sulfate [ProAir HFA] 90 mcg/actuation HFA aerosol inhaler 2 puff INHALATION DAILY PRN (Reason: Shortness Of Breath) celecoxib 200 mg capsule 200 mg PO BID latanoprost 0.005 % drops 1 drp ophthalmic (eye) QPM trazodone 100 mg tablet 100 mg PO BEDTIME PRN (Reason: Sleep) Farxiga 10 mg tablet 10 mg PO DAILY Discharge Orders: Discharge ED (Routine); Ordered 07/25/23 Ordered By: Jessenia Isaac Referrals: Bakari Taylor DO [Primary Care Provider] - 1-3 days Discharge Diet: Advance as tolerated Discharge Activity: Resume usual activity Patient Instructions: Acute Nausea and Vomiting (ED), Weakness (ED) Coding Level of Care Code ED [employer] Attendant for [facility]
[2023-07-25 15:57] LABS: Basophils % 0.1 %; Eosinophils # 0.2 10^3/uL (0.0-0.8); Hematocrit 47.9 % (37-53); Lymphocytes # 2.9 10^3/uL (0.8-4.8); Lymphocytes % 28.3 %; Mean Corpuscular HGB Conc 33.4 g/dL (30-55); Mean Corpuscular Volume 80.9 fl (82-101); Mean Platelet Volume 8.4 fL (7.4-10.4); Monocytes # 0.7 10^3/uL (0.2-0.9); Monocytes % 6.7 %; Neutrophils # 6.41 10^3/uL (1.8-7.7); Neutrophils % 62.5 %; Nucleated Red Blood Cells % 0 %; Platelet Count 234 10^3/cmm (157-399); Red Blood Count 5.92 10^6/uL (3.85-5.65); Red Cell Distribution Width 13.9 % (12.1-15.1); White Blood Count 10.26 10^3/uL (3.29-11.43)
--- NOTE | 2023-07-25 16:13 | PC.PHAR ---
07/25/23 [facility] USES HOME HEALTH CARE NURSE NAMED JOSE L IN [facility]. UNABLE TO FIND CURRENT HEALTH CARE WORKER WHO SETS MEDICATIONS UP FOR HIM. CALLED [facility] AND VERIFIED ALL MEDS AND FILL DATES.
[2023-07-25 16:17] LABS: Alanine Aminotransferase 11 U/L (0-41); Albumin Level 4.5 g/dL (3.5-5.2); Alkaline Phosphatase 62 U/L (40-130); Anion Gap 13.3 (5-19); Aspartate Amino Transferase 17 U/L (0-40); Blood Urea Nitrogen 20 mg/dL (8-23); Calcium 10.5 mg/dL (8.5-10.5); Carbon Dioxide 27 mmol/L (22-29); Chloride 98 mmol/L (98-107); Globulin 2.4 g/dL (1.3-4.6); Glucose 141 mg/dL (65-115); Magnesium 2.1 mg/dL (1.7-2.3); Osmolality Calculated 283 mOsm/kg (285-295); Potassium 4.3 mmol/L (3.5-5.1); Sodium 134 mmol/L (136-145); Total Bilirubin 0.3 mg/dL (0.15-1.2); Total Protein 6.9 g/dL (6.6-8.7)
[2023-07-25] MEDS: sodium chloride 0.9% 1,000 ML 999 ML IV (16:29)
[2023-07-25 16:30] VITALS: PULSE 88; RESP 16; O2SAT 96
[2023-07-25 16:47] LABS: Influenza A by IFA negative (Negative); Influenza B by IFA negative (Negative)
[2023-07-25 16:58] LABS: SARS Covid-2 Antigen Negative (Negative)
[2023-07-25 17:05] LABS: Add Urine Microscopic? NO; Charge for UA Resulting for Rev
[2023-07-25 17:11] LABS: Bilirubin Urine Neg (Negative); Blood Urine Neg (Negative); Glucose Urine UA 4+ (Normal); Ketones Urine 1+ (Negative); Leukocyte Esterase Urine Negative (Negative); Nitrate Urine Negative (Negative); Protein Urine Neg (Negative); Specific Gravity, Urine 1.015 (1.005-1.030); Urine Appearance Clear (CLEAR); Urine Color Yellow (Yellow); Urobilinogen Urine Norm (Negative); pH Urine 5 (5-7)
[2023-07-25 17:35] VITALS: PULSE 88; RESP 16; O2SAT 96
[2023-07-25] MEDS: ondansetron 4 MG Tablet PO (17:35)
== END 2023-07-25 17:36 | disposition home or self-care (01) ==
PROVIDERS: Emergency Provider Emergency Medicine; PCP Electrodiagnostic Medicine
DX: R53.1 Weakness (principal); R11.0 Nausea; Z11.52 Encounter for screening for COVID-19; E78.5 Hyperlipidemia, unspecified; I10 Essential (primary) hypertension; G20.A1 Parkinson's disease without dyskinesia, without mention of fluctuations; F17.210 Nicotine dependence, cigarettes, uncomplicated
CPT/HCPCS: 70450; 71045; 80053; 81003; 83735; 84443; 85025; 87426; 87804; 93005; 96360; 99285; J7030; Q0162

== ENCOUNTER → 2023-09-11 10:47 | Outpatient (BNVA) | payer MEDICARE, MEDICAID, SELFPAY | PROVIDERS: PCP Electrodiagnostic Medicine; Visit Provider Psychiatry & Neurology Neurology | DX: G20.A1 Parkinson's disease without dyskinesia, without mention of fluctuations (principal); R13.10 Dysphagia, unspecified; H49.20 Sixth [abducent] nerve palsy, unspecified eye; R26.89 Other abnormalities of gait and mobility; M54.2 Cervicalgia; M53.82 Other specified dorsopathies, cervical region; R63.4 Abnormal weight loss | CPT/HCPCS: 36415; 82306; 82607; 82746; 83735; 86592; 86780; 99203 ==

== ENCOUNTER 2023-09-12 05:03 | Inpatient (IN) | payer MEDICARE, MEDICAID, SELFPAY ==
[2023-09-12] VITALS (76 sets, daily range): BP systolic 89–208; BP diastolic 53–96; PULSE 69–122; RESP 14–37; TEMP 36.5–37.3; O2SAT 93–99; BMI 21.1
--- NOTE | 2023-09-12 05:12 | ECG_ITS ---
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 Measurements Intervals [place] Rate: 103 P: 36 NH: 131 QRS: 55 QRSD: 92 T: 79 QT: 320 QTc: 420 Interpretive Statements SINUS TACHYCARDIA MODERATE ST DEPRESSION [0.05+ mV ST DEPRESSION] Compared to ECG 07/25/2023 16:03:18 ST (T wave) deviation now present Sinus rhythm no longer present T-wave abnormality no longer present Electronically Signed On 09-12-2023 7:18:11 CLIENT RELATIONSHIP CONSULTANT by Maurice Chauhan M.D. [id number]
--- NOTE | 2023-09-12 05:14 | XRR_ITS ---
PROCEDURE INFORMATION: Exam: XR Chest Exam date and time: 09/12/2023 5:21 AM Age: 73 years old Clinical indication: Dyspnea TECHNIQUE: Imaging protocol: Radiologic exam of the chest. Views: 1 view. COMPARISON: CR XR chest 2V* [id number] 09/10/2023 12:20 PM FINDINGS: Lungs: Slight obscuration of the right upper lobe, likely secondary to costochondral junction ossification. Wedge-like infiltrates over the right lower lung field. Stable scattered reticular changes of the interstitium. No focal consolidation. Pleural spaces: Unremarkable. No pleural effusion. No pneumothorax. Heart/Mediastinum: Unremarkable. No cardiomegaly. Vasculature: Mild aortic tortuosity. Bones/joints: Unchanged levoconvex curvature of the midthoracic spine. Other findings: Study is limited by rotation. XR/XR chest 1V portable [id number] IMPRESSION: Platelike atelectasis of the right lower lung field. No focal consolidation.
[2023-09-12 05:17] LABS: ABG PCO2 46.9 mmHg (35-45); ABG PH Result 7.37 (7.35-7.45); Alveolar-Arterial Oxygen Gradi 1.7 mmHg (5-10); Arterial Blood Gas Hematocrit 52.7 % (42-52); Base Excess ABG 1.1 mmol/L (-2.0-2.0); Blood Gas Allen Test Pos; Blood Gas Sample Site Radial, right; Blood Gas Sample Type Arterial; Carboxyhemoglobin 0.5 %THgb (0.4-20.1); HCO3 ABG 27.2 mmol/L (22-26); HGB O2 Sat 94.4 % (95-100); Ionized Calcium Level - ABG 1.3 mmol/L (1.1-1.4); Methemoglobin 0.4 % (0.4-1.5); Oxygen Device NC; Oxygen Saturation ABG 95.3; PO2 ABG 79.3 mmHg (80.0-100.0); Potassium Level - ABG 3.9 mmol/L (3.5-5.0); Total Hemoglobin 17.2 g/dL (14-18)
--- NOTE | 2023-09-12 05:21 | W.ED.SOB ---
Documented by User: Erasmo Infante DO 09/12/23 19:19 HPI - SOB/Dyspnea General: Chief Complaint: Shortness of Breath/Dyspnea Stated Complaint: respiratory distress Time Seen by Provider: 09/12/23 05:30 History of Present Illness: HPI Narrative: Patient presents to the ER by EMS for respiratory distress, shortness of breath is having problems speaking and swallowing. EMS states that all this is been going on for about a month but has gotten worse over the last 2 to 3 days. EMS states family thinks he may have had a stroke at some point in time. Patient cannot control and suction his own oral cavity. Per EMS they state they talk to the family and patient does want to be intubated if need be. Patient does have a history of COPD but does not wear oxygen at home. He does have an albuterol inhaler. Patient is very hard to get a history out of. Review of the chart shows he has seen Dr. Frederick on September 11 or was noticed he had a resting tremor in his right upper extremity, onset of dysphagia with a 38 pound weight loss since , left cranial nerve palsy with diplopia, patient does have a history of Parkinson disease Review of Systems General: Reports: ROS unobtainable due to medical condition PFSH ED PFSH: Medical History Hyperlipidemia Chronic left hip pain Encounter for long-term opiate analgesic use Anxiety Hypertension Parkinson disease Depression GERD (gastroesophageal reflux disease) Surgical History History of open reduction and internal fixation (ORIF) procedure Left elbow Hx of submucous nasal surgery Hx of brain surgery X2 History of esophagogastroduodenoscopy (EGD) 08/18/2019: Duodenitis Family History Brother Cancer CAD (coronary artery disease) Father Diabetes Parkinson disease Mother CAD (coronary artery disease) Social History Smoking and tobacco/nicotine status: current every day tobacco/nicotine user cigarettes Packs smoked per day: 1 Alcohol intake: never Substance/Drug Use: never Lives independently: Yes Household members: none Current occupational status: disabled Physical Exam Const: COMMON NORMALS: patient oriented x3 and alert HENMT: COMMON NORMALS: normocephalic, atraumatic, hearing grossly normal bilaterally, external ears normal, Normal external nose present, moist oral mucous membranes and oropharynx normal HEAD & SCALP: normocephalic and atraumatic NOSE: Normal external nose present EXTERNAL EAR: Yes external ears normal Eye: COMMON NORMALS: Equal, round and reactive pupils present, EOMs intact bilaterally, conjunctivae normal and no scleral icterus CONJUNCTIVA: Yes conjunctivae normal PUPIL: Yes Equal, round and reactive pupils present Neck/C-Spine: COMMON NORMALS: no JVD Chest: COMMONS NORMALS: normal inspection of the chest and normal palpation of entire chest wall Resp: COMMON NORMALS: normal respiratory effort, No retractions and No use of accessory muscles; negative for clear to auscultation bilaterally (Moderate rhonchi and mild wheezing throughout) AUSCULTATION: not clear to auscultation bilaterally (Moderate rhonchi and mild wheezing throughout) Cardio: COMMON NORMALS: no JVD, regular rate, regular rhythm, S1 normal heart sound present, S2 normal heart sound present, No gallops present (Cardio), No clicks present (Cardio), No murmurs present (Cardio) and No rub (Cardio) RATE: regular rate RHYTHM: regular rhythm HEART SOUNDS: S1 normal heart sound present and S2 normal heart sound present GI: COMMON NORMALS: Normal to inspection, nondistended, normoactive bowel sounds present, Soft to palpation, non-tender, No hepatosplenomegaly present and no masses PALPATION: Yes Soft to palpation and Yes No hepatosplenomegaly present Neuro: COMMON NORMALS: patient oriented x3 SENSORIUM/ORIENTATION: Yes alert Course Vital Signs: Vital signs: Vital Signs Temperature 97.7 F 09/12/23 14:30 Pulse Rate 82 09/12/23 18:00 Respiratory Rate 14 09/12/23 18:00 Blood Pressure 108/63 09/12/23 18:00 Pulse Oximetry 93 09/12/23 18:00 Oxygen Delivery Me thod Mechanical Ventil ation 09/12/23 18:00 Oxygen Flow Rate 6 09/12/23 05:42 Fraction of Inspir ed Oxygen 30 09/12/23 18:00 MDM - SOB/Dyspnea Lab Data 09/12/23 05:17 09/12/23 05:17 Labs/Radiology: Radiology Impressions Chest X-Ray 09/12/23 06:16 IMPRESSION: 1. No acute cardiopulmonary disease. 2. Intubation. Laboratory Results WBC 12.41 10^3/uL (3.29-11.43) H 09/12/23 05:17 RBC 5.88 10^6/uL (3.85-5.65) H 09/12/23 05:17 Hgb 16.10 g/dL (11.27-16.99) 09/12/23 05:17 Hct 49.2 % (37-53) 09/12/23 05:17 MCV 83.7 fl (82-101) 09/12/23 05:17 MCH 27.4 pg (27-33) 09/12/23 05:17 MCHC 32.7 g/dL (30-55) 09/12/23 05:17 RDW 15.8 % (12.1-15.1) H 09/12/23 05:17 Plt Count 275 10^3/cmm (157-399) 09/12/23 05:17 MPV 8.6 fL (7.4-10.4) 09/12/23 05:17 Neut % (Auto) 70.4 % 09/12/23 05:17 Lymph % (Auto) 21.4 % 09/12/23 05:17 [place] % (Auto) 6.2 % 09/12/23 05:17 Eos % (Auto) 1.3 % 09/12/23 05:17 Baso % (Auto) 0.2 % 09/12/23 05:17 Neut # (Auto) 8.75 10^3/uL (1.8-7.7) H 09/12/23 05:17 Lymph # (Auto) 2.7 10^3/uL (0.8-4.8) 09/12/23 05:17 [place] # (Auto) 0.8 10^3/uL (0.2-0.9) 09/12/23 05:17 Eos # (Auto) 0.2 10^3/uL (0.0-0.8) 09/12/23 05:17 Baso # (Auto) 0.0 10^3/uL (0.0-0.1) 09/12/23 05:17 Nucleated RBC % (auto) 0 % 09/12/23 05:17 Nucleated RBCs # 0.0 /100WBC 09/12/23 05:17 Specimen Type Arterial 09/12/23 07:29 Sample Site Radial, left 09/12/23 07:29 ABG pH 7.33 (7.35-7.45) L 09/12/23 07:29 ABG pCO2 50.4 mmHg (35-45) H 09/12/23 07:29 ABG pO2 120.0 mmHg (80.0-100.0) H 09/12/23 07:29 ABG PO2/FiO2 Ratio 0 09/12/23 07:29 ABG HCO3 26.3 mmol/L (22-26) H 09/12/23 07:29 ABG O2 Saturation 98.5 09/12/23 07:29 ABG Base Excess -0.7 mmol/L (-2.0-2.0) 09/12/23 07:29 Jaylon Test Pos 09/12/23 07:29 A-a O2 Gradient 8.7 mmHg (5-10) 09/12/23 07:29 Hematocrit 51.3 % (42-52) 09/12/23 07:29 Hgb O2 Saturation 96.9 % (95-100) 09/12/23 07:29 Carboxyhemoglobin 1.0 %THgb (0.4-20.1) 09/12/23 07:29 Methemoglobin 0.6 % (0.4-1.5) 09/12/23 07:29 Total Hemoglobin 16.7 g/dL (14-18) 09/12/23 07:29 Sodium 143.0 mmol/L (131-143) 09/12/23 07:29 Potassium 3.9 mmol/L (3.5-5.0) 09/12/23 07:29 Glucose 173.0 mg/dL (70-115) H 09/12/23 07:29 Ionized Calcium 1.3 mmol/L (1.1-1.4) 09/12/23 07:29 O2 Delivery Device Vent 09/12/23 07:29 O2 Liters/Min 6.0 % 09/12/23 05:06 FiO2 35.0 % 09/12/23 07:29 Tidal Volume 0.45 09/12/23 07:29 PEEP 5.0 cmH20 09/12/23 07:29 Spun Paste Machine Operator ID Cak 09/12/23 07:29 Sodium 139 mmol/L (136-145) 09/12/23 05:17 Potassium 4.0 mmol/L (3.5-5.1) 09/12/23 05:17 Chloride 97 mmol/L (98-107) L 09/12/23 05:17 Carbon Dioxide 26 mmol/L (22-29) 09/12/23 05:17 Anion Gap 20.0 (5-19) H 09/12/23 05:17 BUN 14 mg/dL (8-23) 09/12/23 05:17 Creatinine 0.6 mg/dL (0.7-1.2) L 09/12/23 05:17 GFR Calculation Not Reportable 09/12/23 05:17 Glucose 141 mg/dL (65-115) H 09/12/23 05:17 Estimat Average Glucose 154 09/12/23 05:17 Hemoglobin A1c 7.0 % (4.0-6.0) H 09/12/23 05:17 Calculated Osmolality 291 mOsm/kg (285-295) 09/12/23 05:17 Lactic Acid 1.9 mmol/L (0.5-2.2) 09/12/23 05:17 Calcium 10.1 mg/dL (8.5-10.5) 09/12/23 05:17 Magnesium 2.0 mg/dL (1.7-2.3) 09/12/23 05:17 Total Bilirubin 0.6 mg/dL (0.15-1.2) 09/12/23 05:17 AST 18 U/L (0-40) 09/12/23 05:17 ALT 12 U/L (0-41) 09/12/23 05:17 Alkaline Phosphatase 66 U/L (40-130) 09/12/23 05:17 Creatine Kinase 130 U/L (39-308) 09/12/23 05:17 Troponin T Baseline 25 ng/L (0-15) H 09/12/23 05:17 Troponin T 120 Minute 54.52 ng/L (0-15) H 09/12/23 06:50 Delta Troponin T 29.52 ABS# (0-10) H* 09/12/23 06:50 Total Protein 7.2 g/dL (6.6-8.7) 09/12/23 05:17 Albumin 4.6 g/dL (3.5-5.2) 09/12/23 05:17 Globulin 2.6 g/dL (1.3-4.6) 09/12/23 05:17 Procalcitonin 0.09 ng/mL (0-0.5) 09/12/23 05:17 Urine Color Straw (Yellow) 09/12/23 06:37 Urine Appearance Clear (CLEAR) 09/12/23 06:37 Urine pH 5 (5-7) 09/12/23 06:37 Ur Specific [place] 1.025 (1.005-1.030) 09/12/23 06:37 Urine Protein Trace (Negative) 09/12/23 06:37 Urine Glucose (UA) 4+ (Normal) H 09/12/23 06:37 Urine Ketones 2+ (Negative) H 09/12/23 06:37 Urine Blood Neg (Negative) 09/12/23 06:37 Urine Nitrate Negative (Negative) 09/12/23 06:37 Urine Bilirubin Neg (Negative) 09/12/23 06:37 Urine Urobilinogen Neg mg/dL (Negative) 09/12/23 06:37 Ur Leukocyte Esterase Negative (Negative) 09/12/23 06:37 Urine RBC 0-4 /hpf (0-2) H 09/12/23 06:37 Urine WBC 0-4 /hpf (0-5) H 09/12/23 06:37 Ur Squamous Epith Cells 0-4 /hpf (0-5) H 09/12/23 06:37 Amorphous Sediment Not Reportable 09/12/23 06:37 Urine Bacteria Trace /hpf (NONE) 09/12/23 06:37 Hyaline Casts 0-4 /lpf H 09/12/23 06:37 Urine Mucus Trace /hpf 09/12/23 06:37 Influenza Type A Ag negative (Negative) 09/12/23 05:24 Influenza Type B Ag negative (Negative) 09/12/23 05:24 SARS-CoV-2 Ag (Rapid) negative (Negative) 09/12/23 05:24 Discharge Plan Discharge Patient Disposition: Admitted As Inpatient Admit Provider: Ciro Lu Clinical Impression: Dysphagia Qualifiers: Dysphagia type: unspecified Qualified Code(s): R13.10 - Dysphagia, unspecified Respiratory failure, acute Qualifiers: Respiratory failure complication: unspecified whether with hypoxia or hypercapnia Qualified Code(s): J96.00 - Acute respiratory failure, unspecified whether with hypoxia or hypercapnia Condition: Stable Coding Level of Care Code ED Ticket Speculator for Chg Fwd Documented by User: Melo Winters DO 09/12/23 10:07 HPI - SOB/Dyspnea General: Chief Complaint: Shortness of Breath/Dyspnea Stated Complaint: respiratory distress Time Seen by Provider: 09/12/23 05:30 [facility] ED PFSH: Medical History Hyperlipidemia Chronic left hip pain Encounter for long-term opiate analgesic use Anxiety Hypertension Parkinson disease Depression GERD (gastroesophageal reflux disease) Surgical History History of open reduction and internal fixation (ORIF) procedure Left elbow Hx of submucous nasal surgery Hx of brain surgery X2 History of esophagogastroduodenoscopy (EGD) 08/18/2019: Duodenitis Family History Brother Cancer CAD (coronary artery disease) Father Diabetes Parkinson disease Mother CAD (coronary artery disease) Social History Smoking and tobacco/nicotine status: current every day tobacco/nicotine user cigarettes Packs smoked per day: 1 Alcohol intake: never Substance/Drug Use: never Lives independently: Yes Household members: none Current occupational status: disabled Procedures Intubation Time out performed: Yes (Intubation note deemed to be necessary due to WOB, loss of protection) sedative: Etomidate paralytic: Rocuronium Laryngoscope: fiber optic video scope ET Tube Size: 8 Tube Secured Depth (cm): 24 Tube Secured Location: lips Tube Placement Confirmation: visualized tube passing through cords, equal breath sounds bilaterally, no breath sounds over epigastrium and confirmation by capnometry Patient Tolerated Procedure: well Intubation Complications: none Additional Comments: Chest x-ray reveals the tube to be approximately 2 cm superior to the josh no evidence of pneumothorax etc. Breath sounds are equal bilaterally. 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 Nursing staff did consult daughter who is the nearest relative who acknowledged that airway protection and intubation was necessary and she agreed to proceed. The patient was quite anxious upon my arrival at bedside and was notable for increased work of breathing quite tachypneic and tachycardic. Breath sounds are diminished at the bases but essentially clear. Pulse oximetry was tenuous and began dropping necessitated bag valve masking with Peep valve which succeeded in bringing his oxygen saturation into the mid 90s and sustained. Rapid sequence intubation was undertaken for airway protection and further evaluation of his condition. This was performed without difficulty with's a secure airway, mechanical ventilation undertaken. His postintubation chest x-ray showed ET tube above the josh no evidence of pneumothorax. He had NG tube in the epigastrium in appropriate position. He was placed on a propofol drip for sedation as well as initially morphine for pain control. Unclear whether this patient's in his current clinical status. Will proceed with additional workup to include CTA. Time: 06:32 Consultations: Consultation #1: Discussed with Dr. Lu of the hospital service is. Will go ahead and add additional imaging and further discussion regarding appropriate disposition. Time: 08:26 Vital Signs: Vital signs: Vital Signs Temperature 97.7 F 09/12/23 14:30 Pulse Rate 82 09/12/23 18:00 Respiratory Rate 14 09/12/23 18:00 Blood Pressure 108/63 09/12/23 18:00 Pulse Oximetry 93 09/12/23 18:00 Oxygen Delivery Me thod Mechanical Ventil ation 09/12/23 18:00 Oxygen Flow Rate 6 09/12/23 05:42 Fraction of Inspir ed Oxygen 30 09/12/23 18:00 MDM - SOB/Dyspnea Medical Decision Making This patient initially presented to the overnight emergency department physician with symptoms of difficulty breathing shortness of breath subjective. He was transported to the emergency department by EMS and workup was initiated by the overnight physician. At my arrival to the emergency department the patient developed progressive increasing work of breathing hypoxia necessitating a emergent intubation to control his work of breathing and protect his airway. Workup continued which revealed possible right lower lobe infiltrate, a elevation in his troponin of uncertain etiology. Additional findings were unrevealing to include a CT a which was negative for pulmonary embolus and a cervical spine CT which was negative for any obvious pathology within the limits of the CT scan. The patient will be admitted to the intensive care unit for respiratory failure possible right lower lobe aspiration pneumonia and dysphagia have neurology consultation and further imaging as indicated. Medical Records I reviewed the patient's medical records. Note from neurology from 11 September was reviewed. Patient has a history of progressive dysphagia and other upper oral pharyngeal issues as well as weight loss. Lab Data I reviewed the patient's lab results. 09/12/23 05:17 09/12/23 05:17 Labs/Radiology: Radiology Impressions Chest X-Ray 09/12/23 06:16 IMPRESSION: 1. No acute cardiopulmonary disease. 2. Intubation. Laboratory Results WBC 12.41 10^3/uL (3.29-11.43) H 09/12/23 05:17 RBC 5.88 10^6/uL (3.85-5.65) H 09/12/23 05:17 Hgb 16.10 g/dL (11.27-16.99) 09/12/23 05:17 Hct 49.2 % (37-53) 09/12/23 05:17 MCV 83.7 fl (82-101) 09/12/23 05:17 MCH 27.4 pg (27-33) 09/12/23 05:17 MCHC 32.7 g/dL (30-55) 09/12/23 05:17 RDW 15.8 % (12.1-15.1) H 09/12/23 05:17 Plt Count 275 10^3/cmm (157-399) 09/12/23 05:17 MPV 8.6 fL (7.4-10.4) 09/12/23 05:17 Neut % (Auto) 70.4 % 09/12/23 05:17 Lymph % (Auto) 21.4 % 09/12/23 05:17 [place] % (Auto) 6.2 % 09/12/23 05:17 Eos % (Auto) 1.3 % 09/12/23 05:17 Baso % (Auto) 0.2 % 09/12/23 05:17 Neut # (Auto) 8.75 10^3/uL (1.8-7.7) H 09/12/23 05:17 Lymph # (Auto) 2.7 10^3/uL (0.8-4.8) 09/12/23 05:17 [place] # (Auto) 0.8 10^3/uL (0.2-0.9) 09/12/23 05:17 Eos # (Auto) 0.2 10^3/uL (0.0-0.8) 09/12/23 05:17 Baso # (Auto) 0.0 10^3/uL (0.0-0.1) 09/12/23 05:17 Nucleated RBC % (auto) 0 % 09/12/23 05:17 Nucleated RBCs # 0.0 /100WBC 09/12/23 05:17 Specimen Type Arterial 09/12/23 07:29 Sample Site Radial, left 09/12/23 07:29 ABG pH 7.33 (7.35-7.45) L 09/12/23 07:29 ABG pCO2 50.4 mmHg (35-45) H 09/12/23 07:29 ABG pO2 120.0 mmHg (80.0-100.0) H 09/12/23 07:29 ABG PO2/FiO2 Ratio 0 09/12/23 07:29 ABG HCO3 26.3 mmol/L (22-26) H 09/12/23 07:29 ABG O2 Saturation 98.5 09/12/23 07:29 ABG Base Excess -0.7 mmol/L (-2.0-2.0) 09/12/23 07:29 Jaylon Test Pos 09/12/23 07:29 A-a O2 Gradient 8.7 mmHg (5-10) 09/12/23 07:29 Hematocrit 51.3 % (42-52) 09/12/23 07:29 Hgb O2 Saturation 96.9 % (95-100) 09/12/23 07:29 Carboxyhemoglobin 1.0 %THgb (0.4-20.1) 09/12/23 07:29 Methemoglobin 0.6 % (0.4-1.5) 09/12/23 07:29 Total Hemoglobin 16.7 g/dL (14-18) 09/12/23 07:29 Sodium 143.0 mmol/L (131-143) 09/12/23 07:29 Potassium 3.9 mmol/L (3.5-5.0) 09/12/23 07:29 Glucose 173.0 mg/dL (70-115) H 09/12/23 07:29 Ionized Calcium 1.3 mmol/L (1.1-1.4) 09/12/23 07:29 O2 Delivery Device Vent 09/12/23 07:29 O2 Liters/Min 6.0 % 09/12/23 05:06 FiO2 35.0 % 09/12/23 07:29 Tidal Volume 0.45 09/12/23 07:29 PEEP 5.0 cmH20 09/12/23 07:29 Spun Paste Machine Operator ID Cak 09/12/23 07:29 Sodium 139 mmol/L (136-145) 09/12/23 05:17 Potassium 4.0 mmol/L (3.5-5.1) 09/12/23 05:17 Chloride 97 mmol/L (98-107) L 09/12/23 05:17 Carbon Dioxide 26 mmol/L (22-29) 09/12/23 05:17 Anion Gap 20.0 (5-19) H 09/12/23 05:17 BUN 14 mg/dL (8-23) 09/12/23 05:17 Creatinine 0.6 mg/dL (0.7-1.2) L 09/12/23 05:17 GFR Calculation Not Reportable 09/12/23 05:17 Glucose 141 mg/dL (65-115) H 09/12/23 05:17 Estimat Average Glucose 154 09/12/23 05:17 Hemoglobin A1c 7.0 % (4.0-6.0) H 09/12/23 05:17 Calculated Osmolality 291 mOsm/kg (285-295) 09/12/23 05:17 Lactic Acid 1.9 mmol/L (0.5-2.2) 09/12/23 05:17 Calcium 10.1 mg/dL (8.5-10.5) 09/12/23 05:17 Magnesium 2.0 mg/dL (1.7-2.3) 09/12/23 05:17 Total Bilirubin 0.6 mg/dL (0.15-1.2) 09/12/23 05:17 AST 18 U/L (0-40) 09/12/23 05:17 ALT 12 U/L (0-41) 09/12/23 05:17 Alkaline Phosphatase 66 U/L (40-130) 09/12/23 05:17 Creatine Kinase 130 U/L (39-308) 09/12/23 05:17 Troponin T Baseline 25 ng/L (0-15) H 09/12/23 05:17 Troponin T 120 Minute 54.52 ng/L (0-15) H 09/12/23 06:50 Delta Troponin T 29.52 ABS# (0-10) H* 09/12/23 06:50 Total Protein 7.2 g/dL (6.6-8.7) 09/12/23 05:17 Albumin 4.6 g/dL (3.5-5.2) 09/12/23 05:17 Globulin 2.6 g/dL (1.3-4.6) 09/12/23 05:17 Procalcitonin 0.09 ng/mL (0-0.5) 09/12/23 05:17 Urine Color Straw (Yellow) 09/12/23 06:37 Urine Appearance Clear (CLEAR) 09/12/23 06:37 Urine pH 5 (5-7) 09/12/23 06:37 Ur Specific [place] 1.025 (1.005-1.030) 09/12/23 06:37 Urine Protein Trace (Negative) 09/12/23 06:37 Urine Glucose (UA) 4+ (Normal) H 09/12/23 06:37 Urine Ketones 2+ (Negative) H 09/12/23 06:37 Urine Blood Neg (Negative) 09/12/23 06:37 Urine Nitrate Negative (Negative) 09/12/23 06:37 Urine Bilirubin Neg (Negative) 09/12/23 06:37 Urine Urobilinogen Neg mg/dL (Negative) 09/12/23 06:37 Ur Leukocyte Esterase Negative (Negative) 09/12/23 06:37 Urine RBC 0-4 /hpf (0-2) H 09/12/23 06:37 Urine WBC 0-4 /hpf (0-5) H 09/12/23 06:37 Ur Squamous Epith Cells 0-4 /hpf (0-5) H 09/12/23 06:37 Amorphous Sediment Not Reportable 09/12/23 06:37 Urine Bacteria Trace /hpf (NONE) 09/12/23 06:37 Hyaline Casts 0-4 /lpf H 09/12/23 06:37 Urine Mucus Trace /hpf 09/12/23 06:37 Influenza Type A Ag negative (Negative) 09/12/23 05:24 Influenza Type B Ag negative (Negative) 09/12/23 05:24 SARS-CoV-2 Ag (Rapid) negative (Negative) 09/12/23 05:24 All radiology interpretation(s) finalized by discharge EKG Data EKG 2: I personally reviewed and interpreted this EKG as follows: Interpretation: Second electrocardiogram this visit reveals a ventricular rate of 91 bpm. Normal W[place] interval, QRS duration, corrected QT interval. Normal axis. Nonspecific ST-T wave changes noted inferior laterally but no evidence of acute ischemia. Discharge Plan Discharge Patient Disposition: Admitted As Inpatient Admit Provider: Ciro Lu Clinical Impression: Dysphagia Qualifiers: Dysphagia type: unspecified Qualified Code(s): R13.10 - Dysphagia, unspecified Respiratory failure, acute Qualifiers: Respiratory failure complication: unspecified whether with hypoxia or hypercapnia Qualified Code(s): J96.00 - Acute respiratory failure, unspecified whether with hypoxia or hypercapnia Condition: Stable Coding Level of Care Code ED Ticket Speculator for [place]
[2023-09-12 05:31] LABS: Basophils % 0.2 %; Eosinophils # 0.2 10^3/uL (0.0-0.8); Eosinophils % 1.3 %; Hematocrit 49.2 % (37-53); Lymphocytes # 2.7 10^3/uL (0.8-4.8); Lymphocytes % 21.4 %; Mean Corpuscular HGB Conc 32.7 g/dL (30-55); Mean Corpuscular Hemoglobin 27.4 pg (27-33); Mean Corpuscular Volume 83.7 fl (82-101); Mean Platelet Volume 8.6 fL (7.4-10.4); Monocytes # 0.8 10^3/uL (0.2-0.9); Monocytes % 6.2 %; Neutrophils # 8.75 10^3/uL (1.8-7.7); Neutrophils % 70.4 %; Nucleated Red Blood Cells % 0 %; Platelet Count 275 10^3/cmm (157-399); Red Blood Count 5.88 10^6/uL (3.85-5.65); Red Cell Distribution Width 15.8 % (12.1-15.1); White Blood Count 12.41 10^3/uL (3.29-11.43)
[2023-09-12] MEDS: ipratropium-albuterol 3 mL Neb INHALATION ×3 (05:42→20:24)
[2023-09-12 05:45] LABS: Troponin(5th) Baseline 25 ng/L (0-15)
[2023-09-12 05:48] LABS: Alanine Aminotransferase 12 U/L (0-41); Albumin Level 4.6 g/dL (3.5-5.2); Alkaline Phosphatase 66 U/L (40-130); Aspartate Amino Transferase 18 U/L (0-40); Blood Urea Nitrogen 14 mg/dL (8-23); Calcium 10.1 mg/dL (8.5-10.5); Carbon Dioxide 26 mmol/L (22-29); Chloride 97 mmol/L (98-107); Globulin 2.6 g/dL (1.3-4.6); Glucose 141 mg/dL (65-115); Osmolality Calculated 291 mOsm/kg (285-295); Sodium 139 mmol/L (136-145); Total Bilirubin 0.6 mg/dL (0.15-1.2); Total Protein 7.2 g/dL (6.6-8.7)
[2023-09-12 05:49] LABS: Lactic Sepsis W/Reflex 1.9 mmol/L (0.5-2.2)
[2023-09-12] MEDS: hyDRALAzine 20 mg/mL INJ 1 mL IVP (05:49)
[2023-09-12 05:55] LABS: Procalcitonin 0.09 ng/mL (0-0.5)
[2023-09-12 05:57] LABS: Influenza A by IFA negative (Negative); Influenza B by IFA negative (Negative); SARS Covid-2 Antigen negative (Negative)
--- NOTE | 2023-09-12 06:16 | XRR_ITS ---
PROCEDURE INFORMATION: Exam: XR Chest Exam date and time: 09/12/2023 6:20 AM Age: 73 years old Clinical indication: Device placement; Ett placement (vent status); Additional info: Post intubation ett and og tube placement TECHNIQUE: Imaging protocol: Radiologic exam of the chest. Views: 1 view. COMPARISON: CR (CHEST, ) 09/12/2023 5:21 AM FINDINGS: Tubes, catheters and devices: The endotracheal tube terminates 4 cm above the josh. The NG tube terminates in the stomach. Lungs: Unremarkable. No consolidation. Pleural spaces: Unremarkable. No pleural effusion. No pneumothorax. Heart/Mediastinum: Unremarkable. No cardiomegaly. Bones/joints: Deformity from healed left rib fractures. Prior surgery involving right shoulder. XR/XR chest 1V portable [id number] IMPRESSION: 1. No acute cardiopulmonary disease. 2. Intubation.
[2023-09-12] MEDS: morphine 4 mg/mL SDV 1 mL IVP (06:25)
--- NOTE | 2023-09-12 06:28 | PC.NURSE ---
pts daughter was contacted via phone and informed of her dads current condition. She was informed that he would be admitted to ICU. She will be in as soon as she can find care for her children.
--- NOTE | 2023-09-12 06:34 | CT_ITS ---
WS: [id number] CTA OF THE CHEST WITH PULMONARY EMBOLISM PROTOCOL TECHNIQUE: High-resolution contrast enhanced CTA of the chest with coronal and sagittal reformatted i naveens with pulmonary embolism protocol. MIP images are also reviewed. CLINICAL INFORMATION: hypoxia COMPARISON: None. DLP: 399.[address] scans at [facility] use at least one of these dose optimization techniques: automated e xposure control; mA and/or kV adjustment per patient size (includes targeted exams where dose is matc hed to clinical indication); or iterative reconstruction. FINDINGS: No evidence of pulmonary embolus. Subsegmental atelectasis with slight patchy filtrates RIGHT lower l obe. Subsegmental atelectasis RIGHT middle lobe. Recommend correlation for pneumonia. Cardiomegaly. E nteric tube with tip in the stomach. Endotracheal tube with tip above the josh. Adrenal glands are normal. Thoracic kyphosis and scoliosis. IMPRESSION: 1. No evidence of pulmonary embolus. 2. Slight patchy infiltrates RIGHT lower lobe with subsegmental atelectasis. Recommend correlation f or pneumonia.
[2023-09-12] MEDS: etomidate 2 mg/mL INJ SDV 10 mL 20 MG IVP (06:39)
[2023-09-12] MEDS: propofol 1,000 MG/100 ML INJ 1.95 MG IV (06:40)
--- NOTE | 2023-09-12 06:41 | PC.NURSE ---
This nurse spoke with daughter Kylee Mendes on the phone regarding intubation, and whether or not patient was okay with being intubated if he was unable to breathe on his own. Daughter of patient stated that patient would be all right with it. Dr Infante and Dr Winters notified of what daughter told her.
--- NOTE | 2023-09-12 06:42 | PC.NURSE ---
RSI NURSE NOTE 100 ROLANDO - 0609 20 ETOMIDATE - 0608 TUBE 8, 24 AT LIP @ TEETH - 0611 VITALS AT TIME OF RSI: HR 150, BP 178/117, 99, RR 24
[2023-09-12] MEDS: rocuronium 10 mg/mL INJ 5mL 100 MG IVP (06:53)
[2023-09-12 07:01] LABS: Add Urine Microscopic? YES; Bilirubin Urine Neg (Negative); Blood Urine Neg (Negative); Glucose Urine UA 4+ (Normal); Ketones Urine 2+ (Negative); Leukocyte Esterase Urine Negative (Negative); Nitrate Urine Negative (Negative); Protein Urine Trace (Negative); RBC Urine 0-4 /hpf (0-2); Specific Gravity, Urine 1.025 (1.005-1.030); Squamous Epithelial Cell Urine 0-4 /hpf (0-5); Urine Appearance Clear (CLEAR); Urine Color Straw (Yellow); Urobilinogen Urine Neg (Negative); WBC Urine 0-4 /hpf (0-5); pH Urine 5 (5-7)
[2023-09-12 07:02] LABS: Add Urine Culture? No; Bacteria Urine TRACE /hpf; Hyaline Casts Urine 0-4 /lpf; Mucus Urine TRACE /hpf
--- NOTE | 2023-09-12 07:05 | ECG_ITS ---
[facility] Test Date: 2023-09-12 Pat Name: Tasneem Barajas Department: Room: Gender: Male Hoop Expander: : 1950 Requested By: Erasmo Infante Order Number: [id number] Fabby MD: Maurice Chauhan M.D. Measurements Intervals [place] Rate: 91 P: 56 ID: 140 QRS: 46 QRSD: 96 T: 86 QT: 362 QTc: 447 Interpretive Statements SINUS RHYTHM WITH OCCASIONAL SUPRAVENTRICULAR PREMATURE COMPLEXES NONSPECIFIC ST & T-WAVE ABNORMALITY Compared to ECG 09/12/2023 05:12:10 T-wave abnormality now present Sinus tachycardia no longer present ST (T wave) deviation no longer present Electronically Signed On 09-12-2023 7:18:59 LINE PALLETIZER by Maurice Chauhan M.D. [id number]
--- NOTE | 2023-09-12 07:11 | PC.PHAR ---
PT ON VENT- WILL CALL PHARMACY AT 8AM FOR MED LIST. 09/12/23
[2023-09-12 07:37] LABS: Troponin 5 2HR 54.52 ng/L (0-15)
[2023-09-12 07:39] LABS: Troponin 5 2HR Delta 29.52 ABS# (0-10)
[2023-09-12 07:40] LABS: ABG PCO2 50.4 mmHg (35-45); ABG PH Result 7.33 (7.35-7.45); Alveolar-Arterial Oxygen Gradi 8.7 mmHg (5-10); Arterial Blood Gas Hematocrit 51.3 % (42-52); Base Excess ABG -0.7 mmol/L (-2.0-2.0); Blood Gas Allen Test Pos; Blood Gas Operator Identificat CAK; Blood Gas Sample Site Radial, left; Blood Gas Sample Type Arterial; Blood Gas Tidal Volume 0.45; HCO3 ABG 26.3 mmol/L (22-26); HGB O2 Sat 96.9 % (95-100); Ionized Calcium Level - ABG 1.3 mmol/L (1.1-1.4); Methemoglobin 0.6 % (0.4-1.5); Oxygen Device VENT; Oxygen Saturation ABG 98.5; PO2 FiO2 Ratio Arterial Blood 0; Potassium Level - ABG 3.9 mmol/L (3.5-5.0); Total Hemoglobin 16.7 g/dL (14-18)
--- NOTE | 2023-09-12 08:22 | PC.PHAR ---
Addendum entered by Candy Lopez 09/12/23 08:23: PHARMACY VERIFIED PT IS CURRENTLY TAKING PANTOPRAZOLE 40 MG DAILY, ESOMEPRAZOLE 40 MG DAILY AND SUCRALFATE 1 GRAM 4 TIMES DAILY. Original Note: VERIFIED ALL MEDICATIONS WITH RALPH AT [facility]. 09/12/23
--- NOTE | 2023-09-12 08:27 | CT_ITS ---
WS: [id number] CT CERVICAL WITH CONTRAST TECHNIQUE: Contrast-enhanced CT cervical spine with coronal and sagittal reformatted images. CLINICAL INFORMATION: question of cervical lesion COMPARISON: None. DLP: 283.[address] scans at [facility] use at least one of these dose optimization techniques: automated e xposure control; mA and/or kV adjustment per patient size (includes targeted exams where dose is matc hed to clinical indication); or iterative reconstruction. FINDINGS: Cervical curve. Exaggeration of the normal cervical lordosis. Normal craniocervical junction. Normal C1-C2 articulation. Dens is normal in appearance. Normal occipital condyles. No high-grade spinal can al narrowing. Normal C1 ring. No evidence of acute fracture or dislocation. Normal prevertebral soft tissues. No evidence of blastic or lytic bony lesions. Mild spondylitic hernandez ges. Endotracheal tube and enteric tubes. Lung apices are well aerated. Mild mucosal thickening in th e mastoid air cells. Fluid in the posterior nasopharynx likely due to recent intubation. Spinal canal appears patent. No other suspicious findings. IMPRESSION: 1. No evidence of acute fracture or dislocation. Mild spondylitic changes. 2. No osseous or soft tissue lesions. 3. Spinal canal is patent. 4. No other suspicious findings.
[2023-09-12] MEDS: iohexol 350 mg/mL 500 mL Btl (per mL) IV ×3 (08:52→11:25)
[2023-09-12] MEDS: HYDROmorphone 1 mg/mL INJ 1 mL IVP (09:23)
[2023-09-12] MEDS: propofol 1,000 MG/100 ML INJ 5.84 MG IV (09:24)
--- NOTE | 2023-09-12 10:13 | P.HP_ITS ---
Providers/Chief Complaint 2 Admitting Physician: Ciro Lu MD Primary Care Provider: Bakari Taylor DO Chief Complaint: respiratory distress History of Present Illness Tasneem Barajas is a 73 year old male presenting to the emergency department with shortness of breath, and difficulty speaking and swallowing. Apparently this has been going on for 2 to 3 months and he had had a recent neurology visit, but shortness of breath was more significant prior to arrival at emergency department. I cannot delineate any other history from the patient, as he was intubated in the emergency department. He did see neurology recently, for evaluation of weight loss cranial nerve palsy, neck pain, weakness, history of Parkinson's disease. Workup was being arranged. Review of Systems 2 General: Reports: ROS unobtainable due to endotracheal tube Medications/Allergies Home Medications Medication Instructions Recorded Confirmed Last Taken Type tamsulosin 0.4 mg capsule 0.4 mg PO BID 08/15/19 09/12/23 07/25/23 History esomeprazole magnesium 40 mg 40 mg PO DAILY 04/20/21 09/12/23 07/25/23 History capsule,delayed release (Nexium) albuterol sulfate 90 mcg/actuation 2 puff inhalation Q4H PRN 12/05/21 09/12/23 Unknown History aerosol inhaler (ProAir HFA) Shortness Of Breath alprazolam 1 mg tablet 1 mg PO QID PRN Anxiety 12/05/21 09/12/23 07/25/23 History sucralfate 1 gram tablet (Carafate) 1 g PO QID Acid Reflux 12/05/21 09/12/23 Unknown History isosorbide mononitrate 30 mg 15 mg (1/2 x 30 mg) PO BID #90 tabs 11/13/22 09/12/23 07/25/23 Rx tablet,extended release 24 hr enalapril maleate 10 mg tablet 10 mg PO DAILY #90 tabs 12/22/22 09/12/23 07/25/23 Rx celecoxib 200 mg capsule 200 mg PO BID 07/25/23 09/12/23 07/25/23 History dapagliflozin propanediol 10 mg 10 mg PO DAILY 07/25/23 09/12/23 07/24/23 History tablet (Farxiga) latanoprost 0.005 % eye drops 1 drp ophthalmic (eye) QPM 07/25/23 09/12/23 07/24/23 History trazodone 100 mg tablet 100 mg PO BEDTIME PRN Sleep 07/25/23 09/12/23 Unknown History carbidopa 25 mg-levodopa 100 mg See Rx Instructions .Route .COMPLEX 09/11/23 09/12/23 Unknown History tablet budesonide 160 mcg-glycopyr 9 2 inh inhalation BID 09/12/23 09/12/23 Unknown History mcg-formot 4.8 mcg/actuation HFA inhaler (Breztri Aerosphere) citalopram 20 mg tablet 20 mg PO DAILY 09/12/23 09/12/23 Unknown History finasteride 5 mg tablet 5 mg PO BEDTIME 09/12/23 09/12/23 Unknown History hydrocodone 10 mg-acetaminophen 1 - 2 tab PO Q4H PRN pain 09/12/23 09/12/23 Unknown History 325 mg tablet lovastatin 20 mg tablet 20 mg PO DAILY 09/12/23 09/12/23 Unknown History pantoprazole 40 mg tablet,delayed 40 mg PO QAM 09/12/23 09/12/23 Unknown History release Allergies Allergy/AdvReac Type Severity Reaction Status Date / Time gabapentin Allergy Unknown Verified 09/11/23 11:30 sitagliptin [From Januvia] Allergy ALGY-Swell Verified 09/11/23 11:30 Lip/Tongue/Throat ibuprofen AdvReac ADR-Nausea Verified 09/11/23 11:30 naproxen [From Aleve] AdvReac ADR-Nausea Verified 09/11/23 11:30 PFSH Acute 2 PFSH: Medical History Hyperlipidemia Chronic left hip pain Encounter for long-term opiate analgesic use Anxiety Hypertension Parkinson disease Depression GERD (gastroesophageal reflux disease) Surgical History History of open reduction and internal fixation (ORIF) procedure Left elbow Hx of submucous nasal surgery Hx of brain surgery X2 History of esophagogastroduodenoscopy (EGD) 08/18/2019: Duodenitis Family History Brother Cancer CAD (coronary artery disease) Father Diabetes Parkinson disease Mother CAD (coronary artery disease) Social History Smoking and tobacco/nicotine status: current every day tobacco/nicotine user cigarettes Packs smoked per day: 1 Alcohol intake: never Substance/Drug Use: never Lives independently: Yes Household members: none Current occupational status: disabled Vitals/I&O/Wt Last Vital Signs Pulse 99 09/12/23 09:20 Resp 19 H 09/12/23 09:20 BP 115/63 09/12/23 09:20 Pulse Ox 98 09/12/23 09:20 O2 Del Method Mechanical Ventilation 09/12/23 09:05 O2 Flow Rate 6 09/12/23 05:42 FiO2 35 09/12/23 07:23 09/11/23 09/12/23 09/12/23 22:59 06:59 14:59 Intake Total 8.893 / 8.893 Balance 8.893 / 8.893 Weight last 48 hrs Weight 64.864 kg Physical Exam 2 Narrative: General exam is a male, intubated, who can follow a few simple commands HEENT: Atraumatic and normocephalic. Pupils equally round. Cataract lens replacement is noted. Oropharynx with endotracheal tube Neck is supple no lymphadenopathy thyromegaly Cardiovascular regular rate and rhythm without murmur, no S3 or S4 Lungs clear no wheezing or crackles Abdomen is soft with positive bowel sounds. No obvious organomegaly exam is deferred, Sal noted Extremities no sinus clubbing edema, cap refill brisk Skin no rash Neuro no obvious focal deficits Urinary Catheter Management: Sal: Cath Placed During This Visit: yes Urinary Catheter Date of Insertion: 09/12/23 Urinary Catheter Time of Insertion: 06:37 Data 09/12/23 05:17 09/12/23 05:17 Other Labs: Last ABG demonstrated pH 7.33, pCO2 50, pO2 of 120 on the ventilator. He is on 35% FiO2. LFTs are normal Troponin was 25 with repeat of 54, delta being 30 Urinalysis 0-4 reds 0-4 whites Influenza and COVID antigens negative Blood cultures were obtained EKG demonstrates a heart rate of about 105, normal axis, quite a bit of artifact. No ST elevation. Some nonspecific changes are noted. This is by my evaluation Cervical spine CT no acute findings CTA of chest no evidence of pulmonary embolism, right lower lobe pneumonia/infiltrate Chest x-ray by my read demonstrates rotation, no obvious infiltrate, adequate endotracheal tube placement Micro: Microbiology 09/12/23 06:50 Blood Culture - Preliminary Blood SPECIMEN COLLECTED 09/12/23 06:45 Blood Culture - Preliminary Blood SPECIMEN COLLECTED A&P Assessment and plan (1) Acute respiratory failure with hypoxia and hypercapnia: Patient presents with significant respiratory failure with hypoxia and hypercapnia His course is concerning for a neurodegenerative disorder culminating in this Pneumonia superimposed on this may have worsened his condition, possibly secondary to aspiration Wean ventilator as tolerated. Settings currently reviewed. Fentanyl, propofol for sedation. (2) Pneumonia: Vancomycin, Zosyn Sputum cultures Blood cultures Respiratory panel MRSA PCR (3) Weakness: Patient with history of Parkinson's disease Recent neurology appointment, and there was concern for neurodegenerative disorder versus stroke Check CTA head and neck Secondary to history of weakness affecting speech and swallowing will need speech therapy evaluations when extubated. Secondary to this prolonged condition over months I started the conversation of possible PEG tube placement with family. They are not sure that her father would be amenable to this. Consider therapy evaluations after extubation Check CK (4) Parkinson disease: Continue Sinemet currently Neurology consultation (5) NSTEMI (non-ST elevated myocardial infarction): Concern with significant delta troponin There was no note of chest discomfort on admission This may be a type II elevation with rise associated with worsening respiratory failure. However, non-ST elevation NC cannot completely be excluded Full dose anticoagulation for now Aspirin daily Continue statin Plan History of COPD. Budesonide, DuoNeb Multiple other medical problems as outlined in past medical history Attestations 2 Medical Necessity Statement*: Will need greater than 2 midnight stay for evaluation and treatment of respiratory failure requiring mechanical ventilation, pneumonia, progressive weakness Critical Care Time: The high probability of a clinically significant, sudden or life threatening deterioration of the patient's [pulmonary, cardiac, neurologic] system(s) required my full and direct attention, intervention and personal management. The critical care time is as shown. This time is in addition to time spent performing any reported procedures but includes the following: [x] Data and vital sign review and interpretation [x] Patient assessment, examination and intervention [x] Documentation [x] Medication orders and management Critical Care Time (min): 68 Coding Level of Care Code Critical Care >/= 30 minutes Critical care time (in minutes): 68 The high probability of a clinically significant, sudden or life threatening deterioration, as referenced in this documentation, required my full and direct attention, intervention and personal management. The critical care time shown is in addition to time spent performing any reported separately billable procedures and includes the following: [x] Data and vital sign review and interpretation [x ] Patient assessment, examination and intervention [x] Medication orders and management [x] Patient/Family updates as able [x] Care Coordination and Documentation. Diagnoses Acute respiratory failure with hypoxia and hypercapnia J96.01; J96.02 Pneumonia J18.9 Weakness R53.1 Parkinson disease G20 NSTEMI (non-ST elevated myocardial infarction) I21.4
--- NOTE | 2023-09-12 10:17 | CT_ITS ---
WS: [id number] CTA HEAD AND NECK TECHNIQUE: Contrast enhanced CTA of the head and neck with coronal and sagittal reformatted images an d maximum intensity projection (MIP) images. NASCET criteria utilized. CLINICAL INFORMATION: possible CVA COMPARISON: CT 07/25/2023 DLP: 1069.[address] scans at [facility] use at least one of these dose optimization techniques: automated e xposure control; mA and/or kV adjustment per patient size (includes targeted exams where dose is matc hed to clinical indication); or iterative reconstruction. FINDINGS: No evidence intracranial hemorrhage or mass effect. Tiny chronic lacunar infarct RIGHT caud ate. Mild small vessel changes. Moderate parenchymal volume loss. Intracranial vascular calcification . Endotracheal tube. Paranasal sinuses are well aerated. Mucosal thickening mastoid air cells. RIGHT: RIGHT common carotid artery is patent. Calcified atheromatous plaque RIGHT carotid bulb. No si gnificant RIGHT ICA stenosis. RIGHT ICA is patent to the skull base. LEFT: LEFT common carotid artery is patent. Mild atheromatous plaque LEFT carotid bulb extending into the ICA. No significant LEFT ICA stenosis. LEFT ICA is patent at the skull base. LEFT vertebral artery is dominant and patent. Tiny RIGHT vertebral artery partially ends in PICA. Bas ilar artery is patent. Persistent LEFT DRYING FRAME OPERATOR. Patent RIGHT posterior communicating artery. Normal vascularity to the DRYING FRAME OPERATOR territory bilaterally. Both ICAs are patent at the skull base. Mild cavernous carotid calcification. Hypoplastic RIGHT A1 se gment. Normal vascularity to the JIM and MCA territories bilaterally. No evidence of proximal flow-li miting stenosis. IMPRESSION: 1. Less than 50% ICA stenosis bilaterally. 2. No flow-limiting intracranial stenosis.
[2023-09-12] MEDS: ampicillin-sulbactam 3 GM in sodium chloride 0.9% (plus) 50 ML IV (10:56)
--- NOTE | 2023-09-12 11:14 | ECG_ITS ---
[facility] Test Date: 2023-09-12 Pat Name: Tasneem Barajas Department: Room: [facility] Gender: Male Internet Ecommerce Specialist: : 1950 Requested By: Erasmo Infante Order Number: [id number] Reading MD: Mart Dahl M.D. Measurements Intervals [place] Rate: 97 P: 53 MD: 118 QRS: 49 QRSD: 90 T: 81 QT: 348 QTc: 443 Interpretive Statements SINUS RHYTHM WITH SHORT MD INTERVAL NONSPECIFIC T-WAVE ABNORMALITY Compared to ECG 09/12/2023 07:05:32 Short MD interval now present T-wave abnormality still present Electronically Signed On 09-12-2023 16:31:29 EDGE BLACKER by Mart Dahl M.D. [id number]
[2023-09-12 11:21] LABS: Creatine Phosphokinase 130 U/L (39-308)
[2023-09-12 11:49] LABS: Troponin 5 6HR 236.7 ng/L (0-15); Troponin 5 6HR Delta 211.7 ng/L (0-12)
[2023-09-12] MEDS: fentaNYL 1,000 MCG/100 ML BAG 2.5 MCG IV (11:51)
[2023-09-12] MEDS: sodium chloride 0.9% 1,000 ML 75 ML IV (12:05)
[2023-09-12] MEDS: aspirin 81 mg EC Tablet PO (12:05)
[2023-09-12] MEDS: enoxaparin 60 mg/0.6 mL Syringe SUBCUT (12:05)
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
--- NOTE | 2023-09-12 12:29 | PC.PHAR ---
Pharmacy to dose Vancomycin: Vanco Initial Dosing Patient Information Sex M M/F Last Name ALEXSANDER AGE 73 years First Name TEDDY Ht 69 inches : 1950 ABW 64.864 kg Location: ICU-9 IBW 70.7 kg If loading dose given: DW 64.864 kg Loading DOSE: 1250 mg SCr 0.6 mg/dl This Dose = 19.3 mg/kg CrCl 99.1 ml/min 1st dose Cmax: 24.6 mcg/ml Vd 48.648 liters Time elapsed: 12.0 hrs Ke 0.087 hrs-1 Serum Conc. = 8.7 mcg/ml t1/2 8 hrs Hrs until 20 mcg/ml 3.4 hrs Hrs until 15 mcg/ml 6.7 hours Hrs until 10 mcg/ml 11.4 hours Dose Tau (Freq) Levels expected Standard 1250 12 Cmax 36.5 Targets 19.27 12.0 Cpeak 33.5 25 to 40 mg/kg hours Cmin 15.3 10 to 20
[2023-09-12 12:56] LABS: Adenovirus Not Detected (NOT DETECT); Chlamydia Pneumoniae Not Detected (NOT DETECT); Coronavirus 229E,HKU1,NL63,OC4 Not Detected (NOT DETECT); Human Metapneumovirus Not Detected (NOT DETECT); Human Rhinovirus/Enterovirus Not Detected (NOT DETECT); Influenza A Not Detected (NOT DETECT); Influenza A H1 Not Detected (NOT DETECT); Influenza A H1-2009 Not Detected (NOT DETECT); Influenza A H3 Not Detected (NOT DETECT); Influenza B Not Detected (NOT DETECT); Mycoplasma Pneumoniae Not Detected (NOT DETECT); Parainfluenza Virus Type 1 Not Detected (NOT DETECT); Parainfluenza Virus Type 2 Not Detected (NOT DETECT); Parainfluenza Virus Type 3 Not Detected (NOT DETECT); Parainfluenza Virus Type 4 Not Detected (NOT DETECT); Respiratory Syncytial Virus A Not Detected (NOT DETECT); Respiratory Syncytial Virus B Not Detected (NOT DETECT); SARS-COV-2 Not Detected (NOT DETECT)
--- NOTE | 2023-09-12 13:04 | USCV_ITS ---
Tasneem Barajas Age: 73 Gender: M : 1950 Exam Date: 09/12/2023 15:01 Ordering Phys: Ciro Lu MD Technologist: Sadi Broderick Exam Location: [facility] – [place] Indication: chf BP: 103 / 65 HR: 79 Rhythm: Sinus Technical Quality: Adequate MEASUREMENTS (Male / Female) Normal Values 2D ECHO LV Diastolic Diameter PLAX 3.4 cm 4.2 - 5.9 / 3.9 - 5.3 cm LV Systolic Diameter PLAX 2.7 cm IVS Diastolic Thickness 1.1 cm 0.6 - 1.0 / 0.6 - 0.9 cm IVS Systolic Thickness 1.6 cm LVPW Diastolic Thickness 1.0 cm 0.6 - 1.0 / 0.6 - 0.9 cm LVPW Systolic Thickness 1.4 cm LVOT Diameter 2.1 cm LV Ejection Fraction 2D Teich 46.4 % LV Ejection Fraction MOD 2C 31.9 % LV Ejection Fraction 2C AL 30.5 % LA Diameter 3.7 cm IVC Diameter 1.6 cm M-MODE Aortic Annulus Diameter 3.5 cm LA Ao Ratio MM 1.1 MV E Point Septal Separation 1.1 cm DOPPLER AV Peak Velocity 97.0 cm/s LVOT Peak Velocity 76.0 cm/s AV Area Cont Eq vti 3.6 cm squared AV Area Cont Eq pk 2.7 cm squared MV Area PHT 3.5 cm squared Mitral E to A Ratio 0.7 MV E' Velocity 21.0 cm/s Mitral E to MV E' Ratio 6.6 Mitral E to LV E' Lateral Ratio 4.9 Mitral E to LV E' Septal Ratio 10.2 TR Peak Velocity 123.7 cm/s TR Peak Gradient 6.1 mmHg TV Peak E Velocity 94.0 cm/s Right Atrial Pressure 3.0 mmHg Pulmonary Artery Systolic Pressu 9.1 mmHg FINDINGS Left Ventricle Left ventricle is normal in size. LV systolic function is severely reduced with EF of 25 to 30%. Severe global hypokinesis seen with apical akinesis. Grade 1 diastolic dysfunction Right Ventricle Normal in size and function Right Atrium Normal in size Left Atrium Normal in size Mitral Valve Structurally normal mitral valve. Aortic Valve Structurally normal aortic valve. No significant stenosis or regurgitation. Tricuspid Valve Mild tricuspid regurgitation. Insufficient TR jet to evaluate RVSP. Pulmonic Valve Not well visualized Pericardium Normal Aorta Normal in size IVC Appears to be normal CONCLUSIONS LV systolic function is severely reduced with EF of 25 to 30%. Above-mentioned regional wall motion abnormalities. Mild tricuspid regurgitation. Compared to prior echocardiogram from 2014, LV systolic function has significantly reduced. Maurice Chauhan MD (Electronically Signed) Final Date: 13 September 2023 07:40 S
[2023-09-12 13:06] LABS: Ammonia 44 umol/L (16-60)
[2023-09-12 14:06] LABS: Estmated Average Glucose 154
[2023-09-12] MEDS: vancomycin 1,250 MG/250 ML PIGGYBACK 250 MG IV (14:20)
--- NOTE | 2023-09-12 16:28 | P.CONIM_ITS ---
Providers/Reason For Consult 2 Consulting Physician/Specialty*: Maurice Chauhan MD/ Cardiology Reason for Consult*: NSTEMI Requesting Physician: Dr Lu Attending Physician: Ciro Lu MD Primary Care Provider: Bakari Taylor DO History of Present Illness History of Present Illness Tasneem Barajas is a 73 year old male with no significant prior cardiac history who presented to hospital with shortness of breath and difficulty swallowing and speaking. Troponins went up significantly from baseline of 25 to 226 at 6 hours. Patient was intubated. On sedation however he is awake and responding to questions. She is denying chest pain. Echocardiogram performed that showed severely reduced LV systolic function. Review of Systems 2 General: Reports: ROS unobtainable due to endotracheal tube Medications/Allergies Home Medications Medication Instructions Recorded Confirmed Last Taken Type tamsulosin 0.4 mg capsule 0.4 mg PO BID 08/15/19 09/12/23 07/25/23 History esomeprazole magnesium 40 mg 40 mg PO DAILY 04/20/21 09/12/23 07/25/23 History capsule,delayed release (Nexium) albuterol sulfate 90 mcg/actuation 2 puff inhalation Q4H PRN 12/05/21 09/12/23 Unknown History aerosol inhaler (ProAir HFA) Shortness Of Breath alprazolam 1 mg tablet 1 mg PO QID PRN Anxiety 12/05/21 09/12/23 07/25/23 History sucralfate 1 gram tablet (Carafate) 1 g PO QID Acid Reflux 12/05/21 09/12/23 Unknown History isosorbide mononitrate 30 mg 15 mg (1/2 x 30 mg) PO BID #90 tabs 11/13/22 09/12/23 07/25/23 Rx tablet,extended release 24 hr enalapril maleate 10 mg tablet 10 mg PO DAILY #90 tabs 12/22/22 09/12/23 07/25/23 Rx celecoxib 200 mg capsule 200 mg PO BID 07/25/23 09/12/23 07/25/23 History dapagliflozin propanediol 10 mg 10 mg PO DAILY 07/25/23 09/12/23 07/24/23 History tablet (Farxiga) latanoprost 0.005 % eye drops 1 drp ophthalmic (eye) QPM 07/25/23 09/12/23 07/24/23 History trazodone 100 mg tablet 100 mg PO BEDTIME PRN Sleep 07/25/23 09/12/23 Unknown History carbidopa 25 mg-levodopa 100 mg See Rx Instructions .Route .COMPLEX 09/11/23 09/12/23 Unknown History tablet budesonide 160 mcg-glycopyr 9 2 inh inhalation BID 09/12/23 09/12/23 Unknown History mcg-formot 4.8 mcg/actuation HFA inhaler (Breztri Aerosphere) cholecalciferol (vitamin D3) 125 5,000 unit PO DAILY 09/12/23 09/13/23 Unknown History mcg (5,000 unit) tablet (Vitamin D3) citalopram 20 mg tablet 20 mg PO DAILY 09/12/23 09/12/23 Unknown History dapagliflozin propanediol 10 mg 10 mg PO QAM 09/12/23 09/12/23 Unknown History tablet (Farxiga) diphenhydramine HCl 25 mg capsule 25 mg PO Q6H PRN Allergy Symptoms 09/12/23 09/13/23 Unknown History (Benadryl) finasteride 5 mg tablet 5 mg PO BEDTIME 09/12/23 09/12/23 Unknown History hydrocodone 10 mg-acetaminophen 1 - 2 tab PO Q4H PRN pain 09/12/23 09/12/23 Unknown History 325 mg tablet krill oil 500 mg capsule 1 mg PO 1XD 09/12/23 09/12/23 Unknown History lovastatin 20 mg tablet 20 mg PO DAILY 09/12/23 09/12/23 Unknown History meclizine 25 mg tablet 25 mg PO TID 09/12/23 09/12/23 Unknown History mecobalamin (vitamin B12) 1,000 500 mcg PO DAILY 09/12/23 09/12/23 Unknown History mcg chewable tablet (B12 Active) multivitamin 1 tab PO DAILY 09/12/23 09/12/23 Unknown History ondansetron 8 mg oral soluble film 8 mg PO Q8H 09/12/23 09/13/23 Unknown History pantoprazole 40 mg tablet,delayed 40 mg PO QAM 09/12/23 09/12/23 Unknown History release promethazine 25 tab PO 3XD 09/12/23 09/12/23 Unknown History tizanidine 2 mg tablet 2 mg PO DAILY 09/12/23 09/12/23 Unknown History Allergies Allergy/AdvReac Type Severity Reaction Status Date / Time gabapentin Allergy Unknown Verified 09/11/23 11:30 sitagliptin [From Januvia] Allergy ALGY-Swell Verified 09/11/23 11:30 Lip/Tongue/Throat ibuprofen AdvReac ADR-Nausea Verified 09/11/23 11:30 naproxen [From Aleve] AdvReac ADR-Nausea Verified 09/11/23 11:30 Current Medications Generic Name Dose Route Start Last Admin Trade Name Luisq PRN Reason Stop Dose Admin Albuterol/Ipratropium 3 ml 09/12/23 14:00 09/12/23 13:26 Ipratropium-Albuterol 3 Ml Neb INHALATION Not Given Q6H.RESP ELVER Aspirin 81 mg 09/12/23 11:42 09/12/23 12:05 Aspirin 81 Mg Ec Tablet PO 81 mg DAILY ELVER Administration Enoxaparin Sodium 60 mg 09/12/23 12:00 09/12/23 12:05 Enoxaparin 60 Mg/0.6 Ml Syringe SUBCUT 60 mg Q12H ELVER Administration Propofol 1,000 mg in 100 mls @ 0 mls/hr 09/12/23 06:14 09/12/23 14:24 Diprivan IV 35 mcg/kg/min .Q0M ELVER 13.62 mls/hr Titration Protocol Per Protocol Sodium Chloride 1,000 mls @ 75 mls/hr 09/12/23 11:42 09/12/23 12:05 Sodium Chloride 0.9% IV 75 mls/hr .[id number] ELVER Administration Fentanyl 1,000 mcg in 100 mls @ 0 mls/hr 09/12/23 11:42 09/12/23 14:24 Sublimaze IV 75 mcg/hr .Q0M ELVER 7.5 mls/hr Titration Protocol Per Protocol Vancomycin/PEG/NADA/Lysine/Water 1,250 mg in 250 mls @ 250 mls/hr 09/12/23 13:00 09/12/23 14:20 Vancocin IV 250 mls/hr Q12H ELVER Administration PFSH Acute 2 PFSH: Medical History Hyperlipidemia Chronic left hip pain Encounter for long-term opiate analgesic use Anxiety Hypertension Parkinson disease Depression GERD (gastroesophageal reflux disease) Surgical History History of open reduction and internal fixation (ORIF) procedure Left elbow Hx of submucous nasal surgery Hx of brain surgery X2 History of esophagogastroduodenoscopy (EGD) 08/18/2019: Duodenitis Family History Brother Cancer CAD (coronary artery disease) Father Diabetes Parkinson disease Mother CAD (coronary artery disease) Social History Smoking and tobacco/nicotine status: current every day tobacco/nicotine user cigarettes Packs smoked per day: 1 Alcohol intake: never Substance/Drug Use: never Lives independently: Yes Household members: none Current occupational status: disabled Vitals/I&O/Wt Last Vital Signs Temp 97.7 F 09/12/23 14:30 Pulse 82 09/12/23 14:30 Resp 14 09/12/23 15:25 BP 139/96 09/12/23 14:30 Pulse Ox 97 09/12/23 15:25 O2 Del Method Mechanical Ventilation 09/12/23 14:30 O2 Flow Rate 6 09/12/23 05:42 FiO2 30 09/12/23 15:25 09/12/23 09/12/23 09/12/23 06:59 14:59 22:59 Intake Total 126.103 / 126.103 Output Total 700 / 700 Balance -573.897 / -573.897 Weight last 48 hrs Weight 138 lb 9 oz Weight 143 lb Physical Exam 2 Narrative: GENERAL: Patient is intubated. Awake NECK: No jugular vein distension. [] HEENT: No cyanosis. No icterus. No pallor. [] HEART: Regular S1 and S2. No murmur, rub or gallop. [] LUNGS: Clear to auscultate bilaterally. [] CENTRAL NERVOUS SYSTEM: Grossly nonfocal. [] EXTREMITIES: Lower extremities with 1+ edema bilaterally Urinary Catheter Management: Sal: Cath Placed During This Visit: yes Urinary Catheter Date of Insertion: 09/12/23 Urinary Catheter Time of Insertion: 06:37 Data 09/13/23 04:46 09/13/23 04:46 Micro: Microbiology 09/12/23 11:00 Gram Stain - Final Sputum - Endotracheal Tube Aspirate 09/12/23 06:50 Blood Culture - Preliminary Blood SPECIMEN COLLECTED 09/12/23 06:45 Blood Culture - Preliminary Blood SPECIMEN COLLECTED A&P Assessment and plan (1) NSTEMI (non-ST elevated myocardial infarction): (2) Exertional shortness of breath: (3) Hyperlipidemia: Qualifiers: Hyperlipidemia type: unspecified Qualified Code(s): E78.5 - Hyperlipidemia, unspecified (4) Hypertension: Qualifiers: Hypertension type: essential hypertension Qualified Code(s): I10 - Essential (primary) hypertension Plan Patient has non-ST elevation VT. LV systolic function is severely reduced. However patient is awake even on sedation. Does not want to have any invasive procedures done. Had discussion with patient's family. They also want to medically treat him. Continue aspirin and anticoagulation. Once patient extubated, we can have further discussion. Thank you for involving us with care of this patient. We will continue to follow. Please call with questions. Consult Attestations 2 Medical Necessity Statement: Care expected to cross 2 midnights. Coding Level of Care Code Acute Code for [facility] Fwd Diagnoses NSTEMI (non-ST elevated myocardial infarction) I21.4 Exertional shortness of breath R06.02 Hyperlipidemia, unspecified hyperlipidemia type E78.5 Hyperlipidemia type: unspecified Essential hypertension I10 Hypertension type: essential hypertension
[2023-09-12] MEDS: propofol 1,000 MG/100 ML INJ 13.62 MG IV (16:52)
[2023-09-12] MEDS: carbidopa-levodopa 25-100mg Tablet 1 EACH OG-TUBE ×2 (16:59→21:16)
[2023-09-12] MEDS: piperacillin-tazobactam 3.375 GM in sodium chloride 0.9% (plus) 50 ML IV ×2 (17:00→22:42)
[2023-09-12] MEDS: tamsulosin 0.4 mg Capsule PO (18:22)
[2023-09-12] MEDS: fentaNYL 1,000 MCG/100 ML BAG 15 MCG IV (19:31)
--- NOTE | 2023-09-12 19:59 | PC.NURSE ---
Hydrocodone and alprazolam Patient's daughter brings in patient's home medications for reconciliation. Daughter states, I found everything but the Hydrocodone and Xanax . Medications placed into ICU pyxis. No hydrocodone or alprazolam in to inventory.
[2023-09-12] MEDS: budesonide 0.5 mg/2 mL Neb INHALATION (20:22)
[2023-09-12] MEDS: finasteride 5 mg Tablet PO (21:15)
[2023-09-12] MEDS: propofol 1,000 MG/100 ML INJ 19.46 MG IV (22:56)
[2023-09-13] VITALS (62 sets, daily range): BP systolic 88–169; BP diastolic 50–71; PULSE 55–141; RESP 9–26; TEMP 36.4–36.9; O2SAT 92–100
[2023-09-13] MEDS: enoxaparin 60 mg/0.6 mL Syringe SUBCUT ×3 (00:24→23:39)
[2023-09-13] MEDS: vancomycin 1,250 MG/250 ML PIGGYBACK 250 MG IV ×2 (00:55→12:29)
[2023-09-13] MEDS: fentaNYL 1,000 MCG/100 ML BAG 12.5 MCG IV ×2 (01:24→07:58)
[2023-09-13] MEDS: sodium chloride 0.9% 1,000 ML 75 ML IV (02:20)
[2023-09-13] MEDS: ipratropium-albuterol 3 mL Neb INHALATION ×4 (02:57→20:02)
[2023-09-13] MEDS: propofol 1,000 MG/100 ML INJ 17.51 MG IV (04:28)
[2023-09-13 05:16] LABS: ABG PCO2 43.7 mmHg (35-45); ABG PH Result 7.39 (7.35-7.45); Arterial Blood Gas Hematocrit 45.2 % (42-52); Base Excess ABG 1.2 mmol/L (-2.0-2.0); Blood Gas Sample Type Arterial; HCO3 ABG 26.5 mmol/L (22-26)
[2023-09-13 05:17] LABS: Blood Gas Sample Site Brachial, left; Blood Gas Tidal Volume 0.45; Oxygen Device VENT; PO2 FiO2 Ratio Arterial Blood 0
[2023-09-13 05:24] LABS: Basophils % 0.1 %; Eosinophils # 0.1 10^3/uL (0.0-0.8); Eosinophils % 0.7 %; Hematocrit 44.9 % (37-53); Lymphocytes # 2.1 10^3/uL (0.8-4.8); Lymphocytes % 14.2 %; Mean Corpuscular HGB Conc 31.6 g/dL (30-55); Mean Corpuscular Hemoglobin 26.8 pg (27-33); Mean Corpuscular Volume 84.7 fl (82-101); Mean Platelet Volume 8.9 fL (7.4-10.4); Monocytes # 1.1 10^3/uL (0.2-0.9); Monocytes % 7.7 %; Neutrophils # 11.11 10^3/uL (1.8-7.7); Neutrophils % 76.8 %; Nucleated Red Blood Cells % 0 %; Platelet Count 209 10^3/cmm (157-399); Red Cell Distribution Width 16.4 % (12.1-15.1); White Blood Count 14.47 10^3/uL (3.29-11.43)
[2023-09-13 05:48] LABS: Alanine Aminotransferase < 5 U/L (0-41); Albumin Level 3.7 g/dL (3.5-5.2); Alkaline Phosphatase 52 U/L (40-130); Anion Gap 18.8 (5-19); Aspartate Amino Transferase 16 U/L (0-40); Blood Urea Nitrogen 15 mg/dL (8-23); Carbon Dioxide 23 mmol/L (22-29); Chloride 104 mmol/L (98-107); Creatinine Clr Calc Pharmacy 77.9199; Globulin 2.4 g/dL (1.3-4.6); Glucose 110 mg/dL (65-115); Magnesium 1.9 mg/dL (1.7-2.3); Osmolality Calculated 295 mOsm/kg (285-295); Potassium 3.8 mmol/L (3.5-5.1); Sodium 142 mmol/L (136-145); Total Bilirubin 0.3 mg/dL (0.15-1.2); Total Protein 6.1 g/dL (6.6-8.7)
[2023-09-13] MEDS: piperacillin-tazobactam 3.375 GM in sodium chloride 0.9% (plus) 50 ML IV ×3 (06:19→23:07)
--- NOTE | 2023-09-13 07:00 | XR_ITS ---
WS: [id number] XR chest 1V portable [id number] REASON FOR EXAM: resp failure FINDINGS: Endotracheal tube and nasogastric tube remain in proper position unchanged compared to 09/12/2023. No significant lung opacity, no change from 09/12/2023. IMPRESSION: Stable chest.
[2023-09-13] MEDS: budesonide 0.5 mg/2 mL Neb INHALATION ×2 (07:39→20:01)
--- NOTE | 2023-09-13 08:39 | P.PN_ITS ---
Subjective 2 Subjective: Patient was extubated. Was called that patient has an wide-complex tachycardia. He underwent cardioversion. Back to sinus rhythm. Post EKG showed ST elevation in inferior leads. Patient does not want invasive procedure. Family also want to proceed with medical therapy. Vitals/I&O/Wt Last Vital Signs Temp 97.9 F 09/13/23 07:15 Pulse 65 09/13/23 08:00 Resp 14 09/13/23 08:00 BP 118/61 09/13/23 08:00 Pulse Ox 99 09/13/23 08:00 O2 Del Method Mechanical Ventilation 09/13/23 08:00 O2 Flow Rate 6 09/12/23 05:42 FiO2 30 09/13/23 08:00 09/12/23 09/13/23 09/13/23 22:59 06:59 14:59 Intake Total 584.655 / 960.803 4669.925 / 2220.683 20.209 / 20.209 Output Total 500 / 1200 525 / 1725 Balance 84.655 / -489.242 984.925 / 495.683 20.209 / 20.209 Weight last 48 hrs Weight 141 lb Weight 138 lb 9 oz Weight 143 lb Physical Exam 2 Narrative: GENERAL: Patient is Awake NECK: No jugular vein distension. [] HEENT: No cyanosis. No icterus. No pallor. [] HEART: Regular S1 and S2. No murmur, rub or gallop. [] LUNGS: Clear to auscultate bilaterally. [] CENTRAL NERVOUS SYSTEM: Grossly nonfocal. [] EXTREMITIES: Lower extremities with 1+ edema bilaterally Urinary Catheter Management: Sal: Cath Placed During This Visit: yes Reason for Continuing Indwelling Catheter: Accurate Measurement of Urinary Output in Critically Ill Patients Urinary Catheter Date of Insertion: 09/12/23 Urinary Catheter Time of Insertion: 06:37 Data 09/14/23 03:45 09/14/23 03:45 Micro: Microbiology 09/12/23 06:50 Blood Culture - Preliminary Blood NEGATIVE TO DATE 09/12/23 06:45 Blood Culture - Preliminary Blood NEGATIVE TO DATE 09/12/23 11:00 Gram Stain - Final Sputum - Endotracheal Tube Aspirate A&P Assessment and plan (1) NSTEMI (non-ST elevated myocardial infarction): (2) Exertional shortness of breath: (3) Hyperlipidemia: Qualifiers: Hyperlipidemia type: unspecified Qualified Code(s): E78.5 - Hyperlipidemia, unspecified (4) Hypertension: Qualifiers: Hypertension type: essential hypertension Qualified Code(s): I10 - Essential (primary) hypertension Plan Patient had wide-complex tachycardia. Post cardioversion has ST elevation in inferior leads. Patient and family do not want any invasive procedure. Considering hospice. Thank you for involving us with care of this patient . Please call with questions. Attestations 2 Medical Necessity Statement*: Care expected to cross 2 midnights. Coding Level of Care Code Acute Code for [facility] Fwd Diagnoses NSTEMI (non-ST elevated myocardial infarction) I21.4 Exertional shortness of breath R06.02 Hyperlipidemia, unspecified hyperlipidemia type E78.5 Hyperlipidemia type: unspecified Essential hypertension I10 Hypertension type: essential hypertension
[2023-09-13] MEDS: tamsulosin 0.4 mg Capsule PO (10:01)
[2023-09-13] MEDS: ALPRAZolam 0.5 mg Tablet 1 MG PO ×2 (10:01→12:29)
[2023-09-13] MEDS: citalopram 20 mg Tablet PO (10:01)
[2023-09-13] MEDS: atorvastatin 40 mg Tablet PO (10:01)
[2023-09-13] MEDS: oxyCODONE 5 mg IR Tab/Cap 10 MG PO (10:01)
[2023-09-13] MEDS: tizanidine 4 mg Tablet 2 MG PO (10:01)
[2023-09-13] MEDS: pantoprazole 40 mg SDV IVP (10:02)
[2023-09-13] MEDS: aspirin 81 mg EC Tablet PO (10:02)
--- NOTE | 2023-09-13 10:08 | P.PN_ITS ---
Subjective 2 Subjective: Awake on the ventilator. He is able to follow some instructions. Daughters are present. Medications: Reviewed: Yes Vitals/I&O/Wt Last Vital Signs Temp 97.9 F 09/13/23 07:15 Pulse 65 09/13/23 08:00 Resp 16 09/13/23 09:41 BP 118/61 09/13/23 08:00 Pulse Ox 100 09/13/23 09:41 O2 Del Method Mechanical Ventilation 09/13/23 08:00 O2 Flow Rate 6 09/12/23 05:42 FiO2 30 09/13/23 09:41 09/12/23 09/13/23 09/13/23 22:59 06:59 14:59 Intake Total 584.655 / 691.896 5194.925 / 2220.683 113.538 / 113.538 Output Total 500 / 1200 525 / 1725 Balance 84.655 / -489.242 984.925 / 495.683 113.538 / 113.538 Weight last 48 hrs Weight 63.957 kg Weight 62.851 kg Weight 64.864 kg Physical Exam 2 Narrative: General exam is a male, intubated, who can follow commands HEENT: Oropharynx with endotracheal tube, orogastric tube Neck is supple no lymphadenopathy thyromegaly Cardiovascular regular rate and rhythm without murmur, no S3 or S4 Lungs clear no wheezing or crackles Abdomen is soft with positive bowel sounds. No obvious organomegaly exam is deferred, Sal noted Extremities no sinus clubbing edema, cap refill brisk Skin no rash Neuro no obvious focal deficits Urinary Catheter Management: Sal: Cath Placed During This Visit: yes Reason for Continuing Indwelling Catheter: Accurate Measurement of Urinary Output in Critically Ill Patients Urinary Catheter Date of Insertion: 09/12/23 Urinary Catheter Time of Insertion: 06:37 Data 09/13/23 04:46 09/13/23 04:46 Micro: Microbiology 09/12/23 06:50 Blood Culture - Preliminary Blood NEGATIVE TO DATE 09/12/23 06:45 Blood Culture - Preliminary Blood NEGATIVE TO DATE 09/12/23 11:00 Gram Stain - Final Sputum - Endotracheal Tube Aspirate A&P Assessment and plan (1) Acute respiratory failure with hypoxia and hypercapnia: Patient presents with significant respiratory failure with hypoxia and hypercapnia His course is concerning for a neurodegenerative disorder culminating in this Pneumonia superimposed on this may have worsened his condition, possibly secondary to aspiration Wean ventilator as tolerated. Settings currently reviewed. Fentanyl, propofol for sedation. (2) Pneumonia: Vancomycin, Zosyn Sputum cultures Blood cultures negative to date Respiratory panel negative MRSA PCR pending pending (3) Weakness: Patient with history of Parkinson's disease Recent neurology appointment, and there was concern for neurodegenerative disorder versus stroke Check CTA head and neck Secondary to history of weakness affecting speech and swallowing will need speech therapy evaluations when extubated. Secondary to this prolonged condition over months I started the conversation of possible PEG tube placement with family. They are not sure that her father would be amenable to this. Consider therapy evaluations after extubation CK level was checked and normal (4) Parkinson disease: Continue Sinemet currently Neurology consultation appreciated (5) NSTEMI (non-ST elevated myocardial infarction): Concern with significant delta troponin There was no note of chest discomfort on admission This may be a type II elevation with rise associated with worsening respiratory failure. However, non-ST elevation [place] cannot completely be excluded Full dose anticoagulation for now Aspirin daily Continue statin Secondary to borderline blood pressures, beta-marlen was not started as of yet Cardiology consultation appreciated Echo demonstrated reduced EF of 25 to 30% Plan History of COPD. Budesonide, DuoNeb Multiple other medical problems as outlined in past medical history Attestations 2 Medical Necessity Statement*: Needs continued hospitalization secondary to respiratory failure requiring mechanical hours Critical Care Time: The high probability of a clinically significant, sudden or life threatening deterioration of the patient's [cardiac, pulmonary, infectious, neurologic] s ystem(s) required my full and direct attention, intervention and personal management. The critical care time is as shown. This time is in addition to time spent performing any reported procedures but includes the following: [x] Data and vital sign review and interpretation [x] Patient assessment, examination and intervention [x] Documentation [x] Medication orders and management Critical Care Time (min): 32 Coding Level of Care Code Critical Care >/= 30 minutes Critical care time (in minutes): 32 The high probability of a clinically significant, sudden or life threatening deterioration, as referenced in this documentation, required my full and direct attention, intervention and personal management. The critical care time shown is in addition to time spent performing any reported separately billable procedures and includes the following: [x] Data and vital sign review and interpretation [x ] Patient assessment, examination and intervention [x] Medication orders and management [x] Patient/Family updates as able [x] Care Coordination and Documentation. Diagnoses Acute respiratory failure with hypoxia and hypercapnia J96.01; J96.02 Pneumonia J18.9 Weakness R53.1 Parkinson disease G20 NSTEMI (non-ST elevated myocardial infarction) I21.4
[2023-09-13] MEDS: carbidopa-levodopa 25-100mg Tablet 1 EACH OG-TUBE (12:29)
--- NOTE | 2023-09-13 13:15 | PC.NURSE ---
Pt extubated and NG removed. Pt tolerating well. O2 now 2lpm/NC. Pt keeps clearing his throat . Encouraged pt to cough, non productive. Pt intstructed to not try unless he had a need to cough or he will keep his throat sore.
--- NOTE | 2023-09-13 13:59 | ECG_ITS ---
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 Measurements Intervals [place] Rate: 104 P: 19 GA: 130 QRS: 53 QRSD: 97 T: 94 QT: 322 QTc: 424 Interpretive Statements SINUS TACHYCARDIA WITH OCCASIONAL SUPRAVENTRICULAR PREMATURE COMPLEXES MARKED ST ELEVATION, CONSIDER INFERIOR INJURY [MARKED ST ELEVATION W/O NORMALLY INFLECTED T-WAVE IN II/aVF] ACUTE [place] INTERPRETATION BASED ON A DEFAULT AGE OF 40 YEARS Compared to ECG 09/12/2023 10:58:02 ST (T wave) deviation now present Myocardial infarct finding now present Sinus rhythm no longer present Short GA interval no longer present T-wave abnormality no longer present Electronically Signed On 09-14-2023 9:30:10 OPERATIONAL ASSISTANT by Maurice Chauhan M.D. [id number]
--- NOTE | 2023-09-13 14:00 | PC.NURSE ---
Addendum entered by Gretchen Parada RN 09/13/23 19:39: Lasix also ordered and admin during this event. Original Note: Event: Pt started struggling breathing. Coarse breath sounds auscultated. Jessica RT at bedside tried oxymask then started Biapap at 30% FIO2. Bp and heart rate elevated. Pt anxious. this nurse was getting Precedex ready to start. Pt went into SVT,Heart rate 200's. . Dr Lu at bedside. versed 2 mg and Fentanyl 50mg ( from the gtt for intubation ) administered IVP. Synchronized cardioversion at 120 Joules done. Pt converted to Sinus tach with ST elevation.. Dr Chauhan , then came to bedside. Ordered to started Amio bolus and drip. Hold off on Precedex until he wakes up better ( from the Versed and fentanyl). Respirations even and unlabored. Amio started. Pt waking , pt complaining of shoulder and back pain. Morphine ordered and admin. Nitro paste admin. Metorpolol IVP admin. Pt unable to swallow, so unable to admin Plavix 600mg. Dr Lu aware.
[2023-09-13] MEDS: midazolam 1 mg/mL INJ 5 ML 5 MG (14:06)
[2023-09-13] MEDS: FUROsemide 10 mg/mL SDV 4mL 40 MG IVP (14:30)
--- NOTE | 2023-09-13 14:31 | PM.CCNAC ---
Critical Care Event Note The high probability of a clinically significant, sudden or life threatening deterioration of the patient's [cardiac, respiratory] system(s) required my full and direct attention, intervention and personal management. The critical care time is as shown. This time is in addition to time spent performing any reported procedures but includes the following: [x] Data and vital sign review and interpretation [x] Patient assessment, examination and intervention [x] Documentation [x] Medication orders and management Patient did well after an ablation, until approximately 1 hour later when he went into cardiac arrhythmia. This appeared to be ventricular tachycardia with a pulse. I arrived, his systolic was 90, he had decreased responsiveness. I gave him 50 of fentanyl and 2 of Versed and cardioverted him with 120 J. He then went into sinus rhythm. Cardiology came down and evaluated him as well. EKG following cardioversion demonstrated ST elevation inferior and 2 3 and aVF. I discussed this with the family as they had previously said no cardiac intervention. I was also able to discuss this briefly with the patient. Secondary to his Parkinson's disease, difficulty swallowing, progressive weakness, they did not want to pursue any cardiac intervention. I discussed with him CODE STATUS. He was already a limited code, with no CPR. We discussed making him a full DNR considering his ongoing cardiac issues, arrhythmia, reduction in ejection fraction. Family was amenable to this and patient reported he did not want any other interventions to me directly with nursing present. Family was still amenable to continued medical treatment. Therefore Plavix, amiodarone, nitroglycerin ointment were initiated. Metoprolol 2.5 mg IV will be given as well. While dictating this note, arrhythmia recurred with heart rate in 140. He is alert and with a pulse. Amiodarone has been initiated and will continue to monitor. Family on their way in. Critical Care Time Code activated: No Critical Care Time (min): 52 Coding Level of Care Code Critical Care Time Spent (min) 52
[2023-09-13] MEDS: amiodarone 150 MG/100 ML PREMIX 900 MG IV (14:33)
[2023-09-13] MEDS: morphine 4 mg/mL SDV 1 mL 2 MG IVP (14:45)
[2023-09-13] MEDS: nitroglycerin 1 gm/inch oint Pkt 0.5 INCH TOPICAL ×2 (14:46→21:07)
[2023-09-13] MEDS: metoprolol tartrate 1 mg/1 mL SDV 5 mL 2.5 MG IVP (15:10)
--- NOTE | 2023-09-13 15:15 | PC.NURSE ---
Family at bedside. Dr Lu in room. Pt wants to have BiPap mask removed and use cannula. Ok per Dr gomez. Removed Biapap mask, applied Oxymask at 8 lpm. Less than 5 minutes pt starts thrashing his head around stating he cannot breath. Attempts to redirect and calm him were marginally successful. Reapplied Bipap at FIO2 of 30%. per Dr Lu start the Precedex. Precedex gtt started.
[2023-09-13] MEDS: dexmedeTOMIDine 0.9 % NaCL 400 MCG/100 ML PREMIX IV (15:31)
[2023-09-13] MEDS: morphine 4 mg/mL SDV 1 mL IVP ×4 (17:28→23:39)
--- NOTE | 2023-09-13 19:11 | PC.NURSE ---
Addendum entered by Gretchen Parada RN 09/13/23 19:11: Wasted Fentanyl gtt and Propofol gtt. See EMAR for amounts. Original Note: witnessed waste of fentanyl and propofol with Elena GARDNER
--- NOTE | 2023-09-13 19:31 | PC.NURSE ---
Shift summary: Pt rested in bed throughout the shift. He does have anxiety problems. He tolerated extubation great for less than an hour then cardiac arthyhmias, tachypniec. See previous note about Event. He is unable to swallow his pills at this tmie. It is unknown how long e has been unable to swallow pills. He has continued to use the BiPap at 30% FIO2 for te rest of the shift. He did received Lasix this afternoon after the cardioveersion. He had 1750 ml of urine output. He has stopped complaining of back and shoulder pain this afternoon and now it is just general discomfort. Morphine IVP and Ativan IVP now available for his comfort. at this time Precdex is infusing at 0.6 mcg/kg/hr and Amiodarone at 1 mg/min.
--- NOTE | 2023-09-13 19:43 | PC.NURSE ---
Patient reports pain all over a 10 on 0-10 pain scale. Morphine 4mg given IVP as ordered for pain. blood pressure 91/56 and HR 57. Decreased precede drip to 0.4mcg/kg/hr and removed nitro patch from left chest wall. Family at bedside.
[2023-09-13] MEDS: LORazepam 2 mg/mL INJ 10 mL MDV 1 MG IVP (20:13)
[2023-09-14] VITALS (21 sets, daily range): BP systolic 101–120; BP diastolic 53–66; PULSE 0–58; RESP 0–25; TEMP 36.3–37.2; O2SAT 96–100
[2023-09-14 00:46] LABS: Vancomycin Trough 10.8 ug/mL (10-15)
[2023-09-14] MEDS: vancomycin 1,250 MG/250 ML PIGGYBACK 250 MG IV (01:02)
[2023-09-14] MEDS: morphine 4 mg/mL SDV 1 mL IVP ×2 (01:27→05:15)
[2023-09-14] MEDS: nitroglycerin 1 gm/inch oint Pkt 0.5 INCH TOPICAL (02:31)
[2023-09-14] MEDS: LORazepam 2 mg/mL INJ 10 mL MDV 1 MG IVP (02:31)
[2023-09-14] MEDS: dexmedeTOMIDine 0.9 % NaCL 400 MCG/100 ML PREMIX IV (03:08)
[2023-09-14] MEDS: ipratropium-albuterol 3 mL Neb INHALATION (03:16)
[2023-09-14 04:19] LABS: Basophils % 0.1 %; Eosinophils % 0.1 %; Lymphocytes # 2.1 10^3/uL (0.8-4.8); Lymphocytes % 14.5 %; Mean Corpuscular HGB Conc 32.3 g/dL (30-55); Mean Corpuscular Hemoglobin 26.8 pg (27-33); Mean Platelet Volume 9.3 fL (7.4-10.4); Monocytes # 1.2 10^3/uL (0.2-0.9); Neutrophils # 11.23 10^3/uL (1.8-7.7); Neutrophils % 76.9 %; Nucleated Red Blood Cells % 0 %; Platelet Count 209 10^3/cmm (157-399); Red Cell Distribution Width 16.3 % (12.1-15.1); White Blood Count 14.59 10^3/uL (3.29-11.43)
[2023-09-14 04:38] LABS: Alanine Aminotransferase 17 U/L (0-41); Albumin Level 3.8 g/dL (3.5-5.2); Alkaline Phosphatase 56 U/L (40-130); Anion Gap 16.6 (5-19); Aspartate Amino Transferase 73 U/L (0-40); Blood Urea Nitrogen 16 mg/dL (8-23); Calcium 9.3 mg/dL (8.5-10.5); Carbon Dioxide 28 mmol/L (22-29); Chloride 101 mmol/L (98-107); Creatinine Clr Calc Pharmacy 77.9199; Globulin 2.7 g/dL (1.3-4.6); Glucose 146 mg/dL (65-115); Magnesium 1.8 mg/dL (1.7-2.3); Osmolality Calculated 298 mOsm/kg (285-295); Potassium 3.6 mmol/L (3.5-5.1); Sodium 142 mmol/L (136-145); Total Bilirubin 0.4 mg/dL (0.15-1.2); Total Protein 6.5 g/dL (6.6-8.7)
[2023-09-14] MEDS: piperacillin-tazobactam 3.375 GM in sodium chloride 0.9% (plus) 50 ML IV (06:07)
--- NOTE | 2023-09-14 09:04 | PC.NURSE ---
MTS notified [phone]
--- NOTE | 2023-09-14 09:36 | P.DES_ITS ---
Discharge Providers DDS Date of Admission: 09/12/23 10:06 Date Summary Completed: 09/14/23 Attending Provider at Admission: Ciro Lu MD Time of : 08:40 Attending Provider at Discharge: Ciro Lu MD Primary Care Provider: DO TREY Fan Diagnoses Hospital Diagnoses (1) Acute respiratory failure with hypoxia and hypercapnia: (2) Pneumonia: (3) Weakness: (4) Parkinson disease: (5) NSTEMI (non-ST elevated myocardial infarction): Reason for Visit Reason for Visit respiratory distress Summary Date and Time of Date of : 09/14/23 Time of : 08:40 Summary Summary: Patient is a 73-year-old white male admitted to the hospital on September 12 with respiratory failure. He had recently been seen by neurology for concern of weakness, difficulty swallowing for several months and was also identified to have a cranial nerve palsy. He has been having significant neck weakness and difficulty holding his head up. In the emergency department he was intubated. Given his history there was concern for a neurodegenerative disorder. There was also concern for pneumonia and he was placed on vancomycin and Zosyn. Troponin was elevated, and secondary to significant delta cardiology was involved. He was placed on aspirin, full dose anticoagulation, statin. Cardiology visited with the patient, and per their discretion he did not want any invasive p rocedures, only medical treatment. Echo was performed which demonstrated significantly low EF, around 25%. The following day he had met extubation criteria and was able to be extubated from the ventilator. After about an hour he required BiPAP, which seemed to serve him well. I had several discussions with him and his daughter when he was intubated and directly after intubation regarding goals and they wanted medical treatment, but no invasive surgical procedures. In the ICU he developed ventricular tachycardia, and secondary to patient instability and his CODE STATUS at that time synchronized cardioversion occurred at 120 J, resulting in sinus rhythm. He was placed on an amiodarone drip and medical treatment continued. EKG following this demonstrated ST elevation inferiorly. I discussed this with cardiology, and had another extensive discussion with family and patient confirming that he wanted medical treatment alone. I brought up concerns of his pre-existing weakness, inability to swallow, history of Parkinson's, and possible need for progression to hospice care. They were contemplating this. The following morning, at date of I visited with the patient who is on BiPAP. He expressed his wishes to be made comfortable over everything else. I was waiting for family to arrive to discuss potential progression to comfort care. During this time period, patient became apneic, bradycardic, and acutely . I evaluated him immediately after being called, and he appeared comfortable. I called his daughter, who came to the hospital and I answered questions she had regarding the events. Diagnosis of , myocardial infarction. Additional Data Advance directives?: No Discharge Plan Discharge Patient Disposition: Condition: Stable Prescriptions: No Action esomeprazole magnesium [Nexium] 40 mg capsule,delayed release(DR/EC) 40 mg PO DAILY sucralfate [Carafate] 1 gram tablet 1 g PO QID alprazolam 1 mg tablet 1 mg PO QID PRN (Reason: Anxiety) isosorbide mononitrate 30 mg tablet extended release 24 hr 15 mg PO BID Qty: 90 3RF enalapril maleate 10 mg tablet 10 mg PO DAILY Qty: 90 3RF tamsulosin 0.4 mg capsule 0.4 mg PO BID albuterol sulfate [ProAir HFA] 90 mcg/actuation HFA aerosol inhaler 2 puff INHALATION Q4H PRN (Reason: Shortness Of Breath) carbidopa-levodopa 25-100 mg tablet See Rx Instructions .ROUTE .COMPLEX Rx Instructions: TAKE 2 TABLETS BY MOUTH IN THE MORNING, 1 TABLET AT NOON, 1 TABLET AT 4 PM, AND 1 TABLET AT BEDTIME. max 5 tablets daily celecoxib 200 mg capsule 200 mg PO BID latanoprost 0.005 % drops 1 drp ophthalmic (eye) QPM trazodone 100 mg tablet 100 mg PO BEDTIME PRN (Reason: Sleep) hydrocodone-acetaminophen 10-325 mg tablet 1 - 2 tab PO Q4H PRN (Reason: pain) Rx Instructions: MAX 6 PER DAY citalopram 20 mg tablet 20 mg PO DAILY pantoprazole 40 mg tablet,delayed release (DR/EC) 40 mg PO QAM lovastatin 20 mg tablet 20 mg PO DAILY finasteride 5 mg tablet 5 mg PO BEDTIME Breztri Aerosphere 160-9-4.8 mcg/actuation HFA aerosol inhaler 2 inh INHALATION BID meclizine 25 mg Tablet 25 mg PO TID PRN (Reason: Dizziness) promethazine 25 tab PO 3XD tizanidine 2 mg Tablet 2 mg PO DAILY diphenhydramine HCl [Benadryl] 25 mg Capsule 25 mg PO Q6H PRN (Reason: Allergy Symptoms) cholecalciferol (vitamin D3) [Vitamin D3] 125 mcg (5,000 unit) Tablet 5,000 unit PO Q7D Farxiga 10 mg Tablet 10 mg PO QAM One A Day Tablet 1 tab PO DAILY B12 Active 1,000 mcg Tablet,Chewable 500 mcg PO DAILY krill oil 500 mg Capsule 1 mg PO 1XD Vitamin B-1 250 mg Tablet 250 mg PO DAILY ondansetron 8 mg Tablet,Disintegrating 8 mg PO Q8H PRN (Reason: Nausea And Vomiting) Ibuprofen PM 200-25 mg Capsule 1 cap PO Q6H Referrals: Bakari Taylor DO [Primary Care Provider] - Patient Instructions: Opioid Safety DS Attestations Time Spent in /Discharge Care*: greater than 30 min Quality - AMI: AMI present?: Yes Quality - Stroke: CVA present?: No Symptom Onset Unknown: No Quality - VTE: VTE present?: No Deep Vein Thrombosis/Pulmonary Embolism Present on Admission: No Coding Level of Care Code 84052 Total time (in minutes) for Discharge: 49 Diagnoses Acute respiratory failure with hypoxia and hypercapnia J96.01; J96.02 Pneumonia J18.9 Weakness R53.1 Parkinson disease G20 NSTEMI (non-ST elevated myocardial infarction) I21.4
--- NOTE | 2023-09-14 10:15 | PC.NURSE ---
0830: Pt on Bipap, RT at bedside, indicating that he cannot breath. Pt holding his chest. He became apneic, heart rhythm changes noted on monitor. Heart rate decreased to 40's. Pulse check , pt had a very weak difficult to palpapate pulse. Pt is noted to be DNR. Dr Lu notified. Family called a notified. Pt then lost pulse, pt now PEA. Family arrived, sitting at beside. Cardiac monitoring Asystole. 0840: Time of . MTs notifications completed by JJ Brooks Family remains at bedside. 0920: Family chooses home. Takes pt's belongings( home meds and shirt). Driscoll still on pt. 0930: Bilat IV cath removed. Both intact and sites WNL. Sal cath removed intact. 1020: Body to [facility]
[2023-09-14 12:28] LABS: Methicillin-Resist S.aureu PCR NOT DETECTED (NOT DETECTED)
--- NOTE | 2023-09-15 00:14 | PC.NURSE ---
[facility] has released body. Still holding for [facility].
== END 2023-09-14 10:20 | disposition expired ==
LOC: ER 05:30 → ICU 10:07
PROVIDERS: Emergency Medicine; Psychiatry & Neurology Neurology; Admitting Provider Internal Medicine; Emergency Provider Emergency Medicine; PCP Electrodiagnostic Medicine; Visit Provider Internal Medicine
DX: I21.4 Non-ST elevation (NSTEMI) myocardial infarction (principal); J18.9 Pneumonia, unspecified organism; J96.02 Acute respiratory failure with hypercapnia; J96.01 Acute respiratory failure with hypoxia; I47.20 Ventricular tachycardia, unspecified; J44.9 Chronic obstructive pulmonary disease, unspecified; G20.A1 Parkinson's disease without dyskinesia, without mention of fluctuations; E78.5 Hyperlipidemia, unspecified; I10 Essential (primary) hypertension; F41.9 Anxiety disorder, unspecified; F32.A Depression, unspecified; K21.9 Gastro-esophageal reflux disease without esophagitis; F17.210 Nicotine dependence, cigarettes, uncomplicated; R13.10 Dysphagia, unspecified; H49.22 Sixth [abducent] nerve palsy, left eye; H53.2 Diplopia; M19.012 Primary osteoarthritis, left shoulder; M19.011 Primary osteoarthritis, right shoulder; Z79.891 Long term (current) use of opiate analgesic; M41.9 Scoliosis, unspecified; H40.9 Unspecified glaucoma
CPT/HCPCS: 31500; 36415; 36600; 51702; 70496; 70498; 71045; 71275; 72126; 80051; 80053; 80202; 81001; 82140; 82306; 82330; 82550; 82607; 82746; 82803; 82805; 83036; 83605; 83735; 84145; 84484; 85025; 86592; 86780; 87040; 87070; 87205; 87426; 87486; 87581; 87633; 87641; 87804; 93005; 93306; 94002; 94003; 94640; 94660; 94799; 96365; 96366; 96367; 96372; 96375; 99203; 99291; A4222; C9113; J0283; J0295; J0360; J1170; J1650; J1940; J2060; J2250; J2270; J2543; J2704; J3010; J3370; J3490; J7030; J7626; Q9967